=== PATIENT | female | born 1960 | race African-American/Black ===

== ENCOUNTER → 2016-06-23 | Outpatient (CLI) | payer MEDICAID ==
--- NOTE | 2016-06-23 15:55 | WOMENS IMAGING REPORT ---
EXAM DESCRIPTION: BILAT SCREENING MAMMO W/CAD COMPLETED DATE/TIME: 06/23/2016 1:07 pm REASON FOR STUDY: Z12.31, ROUTINE SCREENIG MAMMO Z12.31 ENCNTR SCREEN MAMMOGRAM FOR MALIGNANT NEOPL ASM OF LILY COMPARISON: Multiple since 2008 TECHNIQUE: Standard craniocaudal and mediolateral oblique views of each breast recorded using ROBLOXa l acquisition. LIMITATIONS: None. FINDINGS: Findings present which are benign by mammographic criteria. No suspicious masses, calcifi cations or architectural distortion. Read with the assistance of CAD. .[facility] - R2 Cenova Version 1.3 .[facility] - R2 Cenova Version 1.3 .[facility] - R2 Cenova Version 2.4 .[facility] [place] R2 Cenova Version 2.4 .[facility] - R2 Patcher Helper Version 9.2 Benign mammographic findings may include one or more of the following: Smooth masses, popcorn/rim/co arse calcifications, asymmetries, post-procedure changes, and lesions with long-standing stability. BREAST DENSITY: c. The breasts are heterogeneously dense, which may obscure small masses. BIRAD: 2 BENIGN FINDING(S) RECOMMENDATION: ROUTINE SCREENING COMMENT: PATIENT NOTIFIED BY LETTER. The [employer] recommends an annual screening mammogram for women aged 40 years or over. Each patient will receive a reminder prior to the anniversary date of her mammogram. The [employer] (ACR) has developed recommendations for screening MRI of the breast s in certain patient populations, to be used in conjunction with mammography. Breast MRI surveillanc e may be appropriate for women with more than 20% lifetime risk of developing breast cancer as deter mined by genetic testing, significant family history of the disease, or history of mantle radiation f or Hodgkins Disease. ACR Practice Guidelines 2008. TECHNICAL DOCUMENTATION: FINDING NUMBER: (1) ASSESSMENT: (1) JOB ID: [id number] [employer]- All Rights Reserved
== END ==
LOC: WI 11:05
PROVIDERS: ATTEND Physician Assistant
DX: Z12.31 Encounter for screening mammogram for malignant neoplasm of breast (principal)
CPT/HCPCS: 77067; G0202

== ENCOUNTER → 2017-07-30 | Outpatient (CLI) | payer MEDICAID ==
--- NOTE | 2017-07-30 12:24 | WOMENS IMAGING REPORT ---
EXAM DESCRIPTION: BILAT SCREENING MAMMO W/CAD COMPLETED DATE/TIME: 07/30/2017 9:43 am REASON FOR STUDY: ROUTINE SCREENING;Z12.31 Z12.31 ENCNTR SCREEN MAMMOGRAM FOR MALIGNANT NEOPLASM OF LILY COMPARISON: May 2016 and May 2015 TECHNIQUE: Standard craniocaudal and mediolateral oblique views of each breast recorded using Zet Universea l acquisition. LIMITATIONS: None. FINDINGS: Findings present which are benign by mammographic criteria. No suspicious masses, calcifi cations or architectural distortion. Pertinent benign findings: Scattered bilateral calcifications appears stable Read with the assistance of CAD. .[facility] - R2 Cenova Version 1.3 .[facility] - R2 Cenova Version 1.3 .[facility] - R2 Cenova Version 2.4 .[facility] [place]2 Cenova Version 2.4 .[facility] - R2 Grain Origination Specialist Version 9.2 Benign mammographic findings may include one or more of the following: Smooth masses, popcorn/rim/co arse calcifications, asymmetries, post-procedure changes, and lesions with long-standing stability. IMPRESSION: BENIGN MAMMOGRAPHIC FINDINGS. BIRADS 2 BREAST DENSITY: c. The breasts are heterogeneously dense, which may obscure small masses. BIRAD: 2 BENIGN FINDING(S) RECOMMENDATION: ROUTINE SCREENING COMMENT: The patient has been notified of the results by letter per MQSA requirements. Additional no tification policies are in place for contacting patient with suspicious or incomplete findings. Quality ID #[id number]: The [employer] recommends an annual screening mammogram for women aged 40 years or over. This facility utilizes a reminder system to ensure that all patients receive reminder letters, and/or direct phone calls for appointments. This includes reminders for routine scr eening mammograms, diagnostic mammograms, or other Breast Imaging Interventions when appropriate. Th is patient will be placed in the appropriate reminder system. The [employer] (ACR) has developed recommendations for screening MRI of the breast s in certain patient populations, to be used in conjunction with mammography. Breast MRI surveillanc e may be appropriate for women with more than 20% lifetime risk of developing breast cancer as deter mined by genetic testing, significant family history of the disease, or history of mantle radiation f or Hodgkins Disease. ACR Practice Guidelines 2008. TECHNICAL DOCUMENTATION: FINDING NUMBER: (1) ASSESSMENT: (1) JOB ID: [id number] [employer]- All Rights Reserved Reading location - IP/workstation name: [email or web address]
== END ==
LOC: WI 09:28
PROVIDERS: ATTEND Physician Assistant
DX: Z12.31 Encounter for screening mammogram for malignant neoplasm of breast (principal)
CPT/HCPCS: 77067

== ENCOUNTER 2018-03-18 16:13 | Inpatient (IN) | payer MEDICAID ==
[2018-03-18] MEDS ORDERED: ACETAMINOPHEN 650 MG SUPP.RECT PR ONE (16:29)
[2018-03-18] MEDS ORDERED: NORMAL SALINE 1000 ML 1,000 ML IV ONE (16:35)
--- NOTE | 2018-03-18 16:37 | ER Document Report ---
ED General - General Stated Complaint: FEVER Time Seen by Provider: 03/18/18 16:24 Mode of Arrival: Ambulatory Information source: Patient Notes: This is a 57-year-old female with a history of multiple sclerosis, seizure, Alzheimer's who is brought into the emergency room because of difficulty walking. Patient normally has an unsteady gait at baseline from her MS but the patient's sister (whom she lives with) states that she is having increased weakness. Patient also is been found to be febrile in the ER. TRAVEL OUTSIDE OF THE [place] IN LAST 30 DAYS: No - HPI Onset: Yesterday Onset/Duration: Gradual Quality of pain: No pain Severity: None Pain Level: Denies Associated symptoms: Fever, Weakness. denies: Chest pain, Shortness of breath Exacerbated by: Denies Relieved by: Denies Similar symptoms previously: Yes Recently seen / treated by doctor: No - Related Data Allergies/Adverse Reactions: No Known Allergies Allergy (Verified 02/04/16 15:52) Past Medical History - General Information source: Relative - Social History Smoking Status: Unknown if Ever Smoked Cigarette use (# per day): No Chew tobacco use (# tins/day): No Frequency of alcohol use: None Drug Abuse: None Lives with: Family Family History: Reviewed & Not Pertinent Patient has suicidal ideation: No Patient has homicidal ideation: No - Past Medical History Cardiac Medical History: Denies: Hx Coronary Artery Disease, Hx Heart Attack, Hx Hypertension Pulmonary Medical History: Denies: Hx Asthma, Hx Bronchitis, Hx COPD, Hx Pneumonia, Hx Tuberculosis Neurological Medical History: Reports: Hx Seizures - 3-4 yrs ago, Other - MS. Denies: Hx Cerebrovascular Accident Endocrine Medical History: Reports: None Renal/ Medical History: Reports: None Malignancy Medical History: Reports: None GI Medical History: Reports: None Musculoskeletal Medical History: Reports None, Denies Hx Arthritis Skin Medical History: Reports None Psychiatric Medical History: Reports: None Traumatic Medical History: Reports: None Infectious Medical History: Reports: None Past Surgical History: Reports: Hx Hysterectomy. Denies: Hx Pacemaker - Immunizations Hx Diphtheria, Pertussis, Tetanus Vaccination: Yes Hx Pneumococcal Vaccination: 03/07/13 Review of Systems - Review of Systems Constitutional: denies: Chills, Fever EENT: No symptoms reported Cardiovascular: No symptoms reported Respiratory: No symptoms reported Gastrointestinal: denies: Abdominal pain, Vomiting Genitourinary: No symptoms reported Female Genitourinary: No symptoms reported Musculoskeletal: No symptoms reported Skin: No symptoms reported Hematologic/Lymphatic: No symptoms reported Neurological/Psychological: See HPI, Weakness, Gait changes Physical Exam - Vital signs Vitals: Pulse Ox 99 03/18/18 16:44 Notes: Physical exam: GENERAL: Patient is alert and she is answering questions, she appears to be at her baseline mentally (the patient's sister is at the bedside). She is febrile (103 rectally). HEAD: Atraumatic, normocephalic. EYES: Pupils equal round and reactive to light, extraocular movements intact, sclera anicteric, conjunctiva are normal. ENT: TMs normal, nares patent, oropharynx clear without exudates. Moist mucous membranes. NECK: Normal range of motion, supple without obvious mass or JVD. LUNGS: Breath sounds clear to auscultation bilaterally and equal. No wheezes rales or rhonchi. HEART: Regular rate and rhythm without murmurs, rubs or gallops. ABDOMEN: Soft, normoactive bowel sounds. No tenderness to palpation. No guarding, no rebound. No masses appreciated. Rectal: Brown stool, sent for study, no masses. Back: No obvious perianal abscesses. No skin changes acutely to the back. EXTREMITIES: Normal range of motion, no pitting or edema. No clubbing or cyanosis. NEUROLOGICAL: Cranial nerves II through XII grossly intact. Normal speech, moving all extremities. PSYCH: Normal mood, normal affect. SKIN: Warm, Dry, normal turgor, no rashes or lesions noted. Course - Re-evaluation Re-evalutation: 03/18/18 21:04 Vision is been treated with IV fluids, IV ceftriaxone and Tylenol. Plan is for admission for continued fluids and IV antibiotics along with an MRI of the head (with and without: MS protocol) in the morning. Discussed with Dr. Moon who will be admitting patient. 03/18/18 21:05 - Vital Signs Vital signs: Temp Pulse Resp BP Pulse Ox 113/72 100 03/18/18 16:45 03/18/18 16:45 - Laboratory Result Diagrams: 03/18/18 16:25 03/18/18 16:25 Laboratory results interpreted by me: 03/18/18 03/18/18 03/18/18 16:25 16:25 16:25 Seg Neutrophils % 84.5 H Lymphocytes % 8.5 L Absolute Neutrophils 8.7 H AST 82 H ALT 70 H Total Protein 8.8 H TSH 0.34 L Urine Protein Urine Blood Ur Leukocyte Esterase 03/18/18 16:40 Seg Neutrophils % Lymphocytes % Absolute Neutrophils AST ALT Total Protein TSH Urine Protein 30 H Urine Blood SMALL H Ur Leukocyte Esterase LARGE H - Diagnostic Test Radiology reviewed: Image reviewed, Reports reviewed - CT of the abdomen shows no acute inflammation Discharge - Discharge Clinical Impression: MS flare, SIRS with UTI Condition: Stable Disposition: ADMITTED INPATIENT Admitting Provider: Moon Unit Admitted: Medical Floor
[2018-03-18 16:42] LABS: ABSOLUTE LYMPHOCYTES (AUTO) 0.9 10^3/uL (0.5-4.7); ABSOLUTE MONOCYTES (AUTO) 0.7 10^3/uL (0.1-1.4); ABSOLUTE NEUT (AUTO) 8.7 10^3/uL (1.7-8.2); BASOPHILS % (AUTO) 0.4 % (0-2); HEMATOCRIT 38.3 % (36.0-47.0); HEMOGLOBIN 12.9 g/dL (12.0-15.5); LYMPHOCYTES % (AUTO) 8.5 % (13-45); MEAN CORPUSCULAR HEMOGLOBIN 28.2 pg (27.0-33.4); MEAN CORPUSCULAR HGB CONC 33.8 g/dL (32.0-36.0); MEAN CORPUSCULAR VOLUME 83 fl (80-97); MONOCYTES % (AUTO) 6.6 % (3-13); PLATELET COUNT 249 10^3/uL (150-450); RED BLOOD COUNT 4.59 10^6/uL (3.72-5.28); RED CELL DISTRIBUTION WIDTH 13.4 % (11.5-14.0); SEGMENTED NEUTROPHILS % (AUTO) 84.5 % (42-78); TOTAL CELLS COUNTED % (AUTO) 100 %; WHITE BLOOD COUNT 10.3 10^3/uL (4.0-10.5)
[2018-03-18 16:57] LABS: ALANINE AMINOTRANSFERASE 70 U/L (9-52); ALBUMIN 4.6 g/dL (3.5-5.0); ALKALINE PHOSPHATASE 111 U/L (38-126); ANION GAP 14 (5-19); ASPARTATE AMINO TRANSFERASE 82 U/L (14-36); BILIRUBIN,DIRECT 0.2 mg/dL (0.0-0.4); BILIRUBIN,TOTAL 0.6 mg/dL (0.2-1.3); BLOOD UREA NITROGEN 10 mg/dL (7-20); CALCIUM 9.8 mg/dL (8.4-10.2); CARBON DIOXIDE 25 mmol/L (22-30); CHLORIDE 100 mmol/L (98-107); GLUCOSE 109 mg/dL (75-110); POTASSIUM 4.2 mmol/L (3.6-5.0); SODIUM 139.3 mmol/L (137-145); TOTAL PROTEIN 8.8 g/dL (6.3-8.2)
[2018-03-18 17:03] LABS: APPEARANCE,URINE CLOUDY; BILIRUBIN,URINE NEGATIVE (NEGATIVE); COLOR,URINE YELLOW; GLUCOSE, URINE NEGATIVE (NEGATIVE); KETONES,URINE NEGATIVE (NEGATIVE); LEUKOCYTE ESTERASE,URINE LARGE (NEGATIVE); NITRITE,URINE NEGATIVE (NEGATIVE); PROTEIN,URINE 30 mg/dL (NEGATIVE); URINE SPECIFIC GRAVITY 1.011; UROBILINOGEN,URINE NEGATIVE mg/dL (<2.0)
--- NOTE | 2018-03-18 17:09 | RADIOLOGY REPORT (SQ) ---
EXAM DESCRIPTION: CHEST SINGLE VIEW COMPLETED DATE/TIME: 03/18/2018 4:59 pm REASON FOR STUDY: fever, difficulty walking COMPARISON: 03/02/2013. EXAM PARAMETERS: NUMBER OF VIEWS: One view. TECHNIQUE: Single frontal radiographic view of the chest acquired. RADIATION DOSE: NA LIMITATIONS: None. FINDINGS: LUNGS AND PLEURA: No opacities, masses or pneumothorax. No pleural effusion. MEDIASTINUM AND HILAR STRUCTURES: No masses. Contour normal. HEART AND VASCULAR STRUCTURES: Heart normal in size. Normal vasculature. BONES: No acute findings. HARDWARE: None in the chest. OTHER: No other significant finding. IMPRESSION: NO ACUTE RADIOGRAPHIC FINDING IN THE CHEST. TECHNICAL DOCUMENTATION: JOB ID: [id number] [employer]- All Rights Reserved Reading location - IP/workstation name: [email or web address]
[2018-03-18] MEDS ORDERED: CEFTRIAXONE 1 GM/D5W RTU 1 GM/50 ML RTUPB IV ONE (18:30)
--- NOTE | 2018-03-18 20:31 | RADIOLOGY REPORT (SQ) ---
EXAM DESCRIPTION: CT ABD/PELVIS WITH IV ONLY COMPLETED DATE/TIME: 03/18/2018 8:14 pm REASON FOR STUDY: abd pain COMPARISON: None. TECHNIQUE: CT scan of the abdomen and pelvis performed using helical scanning technique with dynamic intravenous contrast injection. No oral contrast. Images reviewed with lung, soft tissue, and bone windows. Reconstructed coronal and sagittal MPR images reviewed. Delayed images for evaluation of the urinary system also acquired. All images stored on PACS. All CT scanners at this facility use dose modulation, iterative reconstruction, and/or weight based d osing when appropriate to reduce radiation dose to as low as reasonably achievable (ALARA). [facility]: Dose Right [facility]: CareDose [facility]: Dose Right [facility]: Teradose 4D [facility]: Energy Points CONTRAST TYPE AND DOSE: contrast/concentration: Isovue 350.00 mg/ml; Total Contrast Delivered: 49.0 ml; Total Saline Delivered: 65.0 ml RENAL FUNCTION: GFR > 60. RADIATION DOSE: CT Rad equipment meets quality standard of care and radiation dose reduction techniq ues were employed. CTDIvol: 4.9 - 5.5 mGy. DLP: 510 mGy-cm.. LIMITATIONS: None. FINDINGS: LOWER CHEST: No significant findings. No nodules or infiltrates. LIVER: Normal size. No masses. No dilated ducts. SPLEEN: Normal size. No focal lesions. PANCREAS: No masses. No significant calcifications. No adjacent inflammation or peripancreatic fluid collections. Pancreatic duct not dilated. GALLBLADDER: No identified stones by CT criteria. No inflammatory changes to suggest cholecystitis. ADRENAL GLANDS: No significant masses or asymmetry. RIGHT KIDNEY AND URETER: No solid masses. No significant calcifications. No hydronephrosis or hyd roureter. LEFT KIDNEY AND URETER: No solid masses. No significant calcifications. No hydronephrosis or hydr oureter. AORTA AND VESSELS: No aneurysm. No dissection. Renal arteries, SMA, celiac without stenosis. RETROPERITONEUM: No retroperitoneal adenopathy, hemorrhage or masses. BOWEL AND PERITONEAL CAVITY: No obstruction. Prominent fecal impaction. APPENDIX: Not visualized. PELVIS: Chowdhury catheter in the bladder. ABDOMINAL WALL: No masses. No hernias. BONES: No significant or acute findings. OTHER: No other significant finding. IMPRESSION: Fecal impaction. TECHNICAL DOCUMENTATION: JOB ID: [id number] Quality ID # [id number]: Final reports with documentation of one or more dose reduction techniques (e.g., Au tomated exposure control, adjustment of the mA and/or kV according to patient size, use of iterative reconstruction technique) 2010 [employer]- All Rights Reserved Reading location - IP/workstation name: [email or web address]
[2018-03-18] MEDS ORDERED: ONDANSETRON HCL INJ/PF 4 MG/2 ML SDV IV PRN (20:50)
[2018-03-18] MEDS ORDERED: IPRATROPIUM/ALBUTEROL 0.5-2.5 MG/3 ML AMPUL NEB PRN (20:50)
[2018-03-18] MEDS ORDERED: ACETAMINOPHEN 325 MG TABLET PO PRN (20:50)
[2018-03-18 21:39] LABS: A TYPE INFLUENZA AG NEGATIVE (NEGATIVE); B INFLUENZA AG NEGATIVE (NEGATIVE)
[2018-03-18] MEDS: FAMOTIDINE 20 MG TABLET PO SCH (21:45)
[2018-03-18] MEDS: LEVETIRACETAM 500 MG TABLET PO SCH (21:45)
[2018-03-18] MEDS: POLYETHYLENE GLYCOL 3350 POWDER 17 GM/1 PACKET PO SCH (22:08)
[2018-03-19] MEDS: NORMAL SALINE 1000 ML 1,000 ML IV PRN ×2 (00:24→20:42)
[2018-03-19 09:29] LABS: HEMATOCRIT 28.1 % (36.0-47.0); MEAN CORPUSCULAR HEMOGLOBIN 27.9 pg (27.0-33.4); MEAN CORPUSCULAR HGB CONC 33.7 g/dL (32.0-36.0); MEAN CORPUSCULAR VOLUME 83 fl (80-97); PLATELET COUNT 210 10^3/uL (150-450); RED BLOOD COUNT 3.39 10^6/uL (3.72-5.28); RED CELL DISTRIBUTION WIDTH 13.6 % (11.5-14.0); WHITE BLOOD COUNT 6.4 10^3/uL (4.0-10.5)
[2018-03-19] MEDS: DOCUSATE SODIUM 100 MG CAPSULE PO SCH ×2 (09:38→17:54)
[2018-03-19] MEDS: ENOXAPARIN SODIUM INJ 40 MG/0.4 ML DISP.SYRIN SUBCUT SCH (09:38)
[2018-03-19 09:39] LABS: ALANINE AMINOTRANSFERASE 51 U/L (9-52); ALBUMIN 2.8 g/dL (3.5-5.0); ALKALINE PHOSPHATASE 70 U/L (38-126); ANION GAP 7 (5-19); ASPARTATE AMINO TRANSFERASE 44 U/L (14-36); BILIRUBIN,DIRECT 0.1 mg/dL (0.0-0.4); BILIRUBIN,TOTAL 0.3 mg/dL (0.2-1.3); BLOOD UREA NITROGEN 7 mg/dL (7-20); CALCIUM 8.5 mg/dL (8.4-10.2); CARBON DIOXIDE 23 mmol/L (22-30); CHLORIDE 110 mmol/L (98-107); GLUCOSE 92 mg/dL (75-110); POTASSIUM 3.8 mmol/L (3.6-5.0); TOTAL PROTEIN 5.8 g/dL (6.3-8.2)
[2018-03-19] MEDS: POLYETHYLENE GLYCOL 3350 POWDER 17 GM/1 PACKET PO SCH (09:39)
[2018-03-19] MEDS: FAMOTIDINE 20 MG TABLET PO SCH ×2 (09:40→22:42)
[2018-03-19] MEDS: CEFTRIAXONE SODIUM 2,000 MG in DEXTROSE 5%-WATER 100 ML IV SCH (09:41)
[2018-03-19 09:43] LABS: HEMOGLOBIN 9.5 g/dL (12.0-15.5)
[2018-03-19] MEDS: LEVETIRACETAM 500 MG TABLET PO SCH ×2 (09:45→22:41)
[2018-03-19] MEDS ORDERED: CEFTRIAXONE 2 GM/D5W RTU 2 GM/50 ML RTUPB IV SCH (10:00)
--- NOTE | 2018-03-19 11:01 | PDOC H&P ---
History of Present Illness Admission Date/PCP: 03/18/18 21:23 DELFINA SHARPE Patient complains of: Altered mental status History of Present Illness: JEAN TOMLINSON is a 57 year old female This is a 57-year-old female with a significant history of the multiple sclerosis currently see outpatients neurology currently not any medications history of for anemia and a history of the unstable or doing a gait came to the emergency departments because of the patient's family noticed patients more alter and also in the breath department patients found to be fever and diagnosed with a urinary tract infections Patient's when I saw in the floor doing better back to the baseline Patients received IV antibiotic and IV fluid Patient's denied any other symptoms Sister is on the bedside discussed with the all the test reports and the plan Past Medical History Cardiac Medical History: Denies: Coronary Artery Disease, Myocardial Infarction, Hypertension Pulmonary Medical History: Denies: Asthma, Bronchitis, Chronic Obstructive Pulmonary Disease (COPD), Pneumonia, Tuberculosis Neurological Medical History: Reports: Seizures - 3-4 yrs ago, Other - MS Endocrine Medical History: Reports: None Renal/ Medical History: Reports: None Malignancy Medical History: Reports: None GI Medical History: Reports: None Musculoskeltal Medical History: Reports: None Denies: Arthritis Skin Medical History: Reports: None Psychiatric Medical History: Reports: None Traumatic Medical History: Reports: None Hematology: Denies: Anemia Infectious Medical History: Reports: None Past Surgical History Past Surgical History: Reports: Hysterectomy Denies: Pacemaker Social History Lives with: Family Smoking Status: Unknown if Ever Smoked Frequency of Alcohol Use: None Hx Recreational Drug Use: No Hx Prescription Drug Abuse: No - Advance Directive Resuscitation Status: Full Code Family History Family History: Reviewed & Not Pertinent Parental Family History Reviewed: Yes Children Family History Reviewed: Yes Sibling(s) Family History Reviewed.: Yes Medication/Allergy Allergies/Adverse Reactions: No Known Allergies Allergy (Verified 02/04/16 15:52) Review of Systems Constitutional: ABSENT: chills, fever(s), headache(s), weight gain, weight loss Eyes: ABSENT: visual disturbances Ears: ABSENT: hearing changes Cardiovascular: ABSENT: chest pain, dyspnea on exertion, edema, orthropnea, palpitations Respiratory: ABSENT: cough, hemoptysis Gastrointestinal: ABSENT: abdominal pain, constipation, diarrhea, hematemesis, hematochezia, nausea, vomiting Genitourinary: ABSENT: dysuria, hematuria Musculoskeletal: ABSENT: joint swelling Integumentary: ABSENT: rash, wounds Neurological: ABSENT: abnormal gait, abnormal speech, confusion, dizziness, focal weakness, syncope Psychiatric: ABSENT: anxiety, depression, homidical ideation, suicidal ideation Endocrine: ABSENT: cold intolerance, heat intolerance, menstrual abnormalities, polydipsia, polyuria Hematologic/Lymphatic: ABSENT: easy bleeding, easy bruising, lymphadenopathy Physical Exam Vital Signs: Temp Pulse Resp BP Pulse Ox 99.8 F 95 16 94/54 L 99 03/19/18 07:14 03/19/18 07:14 03/19/18 07:14 03/19/18 07:14 03/19/18 07:14 Intake & Output 03/18/18 03/19/18 03/20/18 06:59 06:59 06:59 Intake Total 0 Output Total 300 Balance -300 Weight 37.2 kg General appearance: PRESENT: no acute distress, well-developed, well-nourished Head exam: PRESENT: atraumatic, normocephalic Eye exam: PRESENT: conjunctiva pink, EOMI, PERRLA. ABSENT: scleral icterus Ear exam: PRESENT: normal external ear exam Mouth exam: PRESENT: moist, tongue midline Neck exam: PRESENT: full ROM. ABSENT: carotid bruit, JVD, lymphadenopathy, thyromegaly Respiratory exam: PRESENT: clear to auscultation nilson Cardiovascular exam: PRESENT: RRR. ABSENT: diastolic murmur, rubs, systolic murmur Pulses: PRESENT: normal dorsalis pedis pul, +2 pedal pulses bilateral Vascular exam: PRESENT: normal capillary refill GI/Abdominal exam: PRESENT: normal bowel sounds, soft. ABSENT: distended, guarding, mass, organolmegaly, rebound, tenderness Rectal exam: PRESENT: deferred Extremities exam: ABSENT: pedal edema Neurological exam: PRESENT: alert, awake, oriented to person, oriented to place , oriented to time, oriented to situation. ABSENT: motor sensory deficit Psychiatric exam: PRESENT: appropriate affect, normal mood. ABSENT: homicidal ideation, suicidal ideation Skin exam: PRESENT: dry, intact, warm. ABSENT: cyanosis, rash Results Laboratory Results: 03/19/18 09:05 03/19/18 09:05 03/19/18 03/19/18 03/19/18 09:05 09:05 09:05 WBC 6.4 RBC 3.39 L Hgb 9.5 L D Hct 28.1 L MCV 83 MCH 27.9 MCHC 33.7 RDW 13.6 Plt Count 210 Sodium 140.0 Potassium 3.8 Chloride 110 H Carbon Dioxide 23 Anion Gap 7 BUN 7 Creatinine 0.66 Est GFR ( Amer) > 60 Est GFR (Non-Af Amer) > 60 Glucose 92 Calcium 8.5 Magnesium 2.0 Total Bilirubin 0.3 AST 44 H ALT 51 Alkaline Phosphatase 70 Ammonia < 8.7 L Total Protein 5.8 L Albumin 2.8 L Impressions: Chest X-Ray 03/18/18 16:36 IMPRESSION: NO ACUTE RADIOGRAPHIC FINDING IN THE CHEST. Abdomen/Pelvis CT 03/18/18 18:30 IMPRESSION: Fecal impaction. Assessment & Plan - Diagnosis (1) Altered mental status Qualifiers: Altered mental status type: unspecified Qualified Code(s): R41.82 - Altered mental status, unspecified Is this a current diagnosis for this admission?: Yes Plan: Most likely due to the urinary tract infections and the fever Will continues to IV antibiotic Patient is already back to the baseline We will get the MRI for the MS protocol to rule out any active MS (2) Urinary tract infection Qualifiers: Urinary tract infection type: site unspecified Is this a current diagnosis for this admission?: Yes Plan: Wait for the culture and sensitivity (3) Multiple sclerosis Is this a current diagnosis for this admission?: Yes Plan: Follow outpatients neurology Will get the MRI (4) Anemia Qualifiers: Anemia type: iron deficiency Is this a current diagnosis for this admission?: Yes Plan: Will get the iron study (5) Gait instability Is this a current diagnosis for this admission?: Yes Plan: Get the physical therapy evaluations (6) Seizure disorder Is this a current diagnosis for this admission?: Yes Plan: Continues to [facility] - Time Time Spent: 30 to 50 Minutes Medications reviewed and adjusted accordingly: Yes Anticipated discharge: Home Within: Other - Inpatient Certification Based on my medical assessment, after consideration of the patient's comorbidities, presenting symptoms, or acuity I expect that the services needed warrant INPATIENT care.: Yes I certify that my determination is in accordance with my understanding of Medicare's requirements for reasonable and necessary INPATIENT services [42 CFR 412.3e].: Yes Medical Necessity: Need For IV Fluids, Need for IV Antibiotics Post Hospital Care: 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
--- NOTE | 2018-03-19 15:51 | RADIOLOGY REPORT (SQ) ---
EXAM DESCRIPTION: MRI HEAD WITHOUT COMPLETED DATE/TIME: 03/19/2018 3:06 pm REASON FOR STUDY: ms altered mental status, confusion, difficulty walking, weakness COMPARISON: MRI brain 06/26/2015, 12/28/2007 TECHNIQUE: Multiplanar imaging includes non-contrasted T1, T2, FLAIR, and diffusion with ADC map seq uences. Images stored on PACS. LIMITATIONS: Mild motion artifact on some of the pulse sequences FINDINGS: ANATOMY: No congenital anomalies. Normal vascular flow voids. Pituitary fossa normal. CSF SPACES: Normal in size and contour. No hemorrhage. CEREBRUM AND POSTERIOR FOSSA: Profound diffuse white matter disease with atrophy and increased signal of the corpus callosum on FLAIR, with extensive demyelinating lesions in the deep periventricular wh ite matter of the cerebral hemispheres. Old cerebellar and middle cerebellar peduncle white matter l esions from demyelinating disease. No MR findings to suggest acute large territory ischemic change, acute intracranial hemorrhage, mass effect, or midline shift. Internal auditory canals, cerebello-po ntine angles, mastoids normal. DIFFUSION IMAGING: Negative for acute or sub-acute infarction. No diffusion signal abnormalities wor risome for acute demyelinating plaque ORBITS: No masses. Globes normal. PARANASAL SINUSES: No fluid levels. Mucosa normal. OTHER: No other significant finding. IMPRESSION: Extensive white matter lesions from patient's known multiple sclerosis. Diffusion-weigh kaylan images are negative for acute ischemic change or acute demyelinating lesions. EVIDENCE OF ACUTE STROKE: NO. TECHNICAL DOCUMENTATION: JOB ID: [id number] [employer]- All Rights Reserved Reading location - IP/workstation name: [email or web address]
--- NOTE | 2018-03-19 15:52 | RADIOLOGY REPORT (SQ) ---
EXAM DESCRIPTION: CHEST 2 VIEWS COMPLETED DATE/TIME: 03/19/2018 1:15 pm REASON FOR STUDY: FEVER COMPARISON: 03/18/2018 EXAM PARAMETERS: NUMBER OF VIEWS: two views TECHNIQUE: Digital Frontal and Lateral radiographic views of the chest acquired. RADIATION DOSE: NA LIMITATIONS: none FINDINGS: LUNGS AND PLEURA: No opacities, masses or pneumothorax. No pleural effusion. MEDIASTINUM AND HILAR STRUCTURES: No masses or contour abnormalities. HEART AND VASCULAR STRUCTURES: Heart normal size. No evidence for failure. BONES: No acute findings. HARDWARE: None in the chest. OTHER: No other significant finding. IMPRESSION: NO ACUTE RADIOGRAPHIC FINDING IN THE CHEST. TECHNICAL DOCUMENTATION: JOB ID: [id number] [employer]- All Rights Reserved Reading location - IP/workstation name: [email or web address]
[2018-03-20 06:12] LABS: HEMATOCRIT 27.7 % (36.0-47.0); HEMOGLOBIN 9.4 g/dL (12.0-15.5); MEAN CORPUSCULAR HEMOGLOBIN 28.2 pg (27.0-33.4); MEAN CORPUSCULAR HGB CONC 33.9 g/dL (32.0-36.0); MEAN CORPUSCULAR VOLUME 83 fl (80-97); PLATELET COUNT 216 10^3/uL (150-450); RED BLOOD COUNT 3.33 10^6/uL (3.72-5.28); RED CELL DISTRIBUTION WIDTH 13.6 % (11.5-14.0); WHITE BLOOD COUNT 4.4 10^3/uL (4.0-10.5)
[2018-03-20] MEDS: CEFTRIAXONE SODIUM 2,000 MG in DEXTROSE 5%-WATER 100 ML IV SCH (09:10)
[2018-03-20] MEDS: DOCUSATE SODIUM 100 MG CAPSULE PO SCH ×2 (10:32→17:50)
[2018-03-20] MEDS: LEVETIRACETAM 500 MG TABLET PO SCH ×2 (10:32→22:14)
[2018-03-20] MEDS: FAMOTIDINE 20 MG TABLET PO SCH ×2 (10:32→22:14)
[2018-03-20] MEDS: ENOXAPARIN SODIUM INJ 40 MG/0.4 ML DISP.SYRIN SUBCUT SCH (10:32)
[2018-03-20] MEDS: POLYETHYLENE GLYCOL 3350 POWDER 17 GM/1 PACKET PO SCH (10:32)
--- NOTE | 2018-03-20 11:12 | PDOC PROGRESS REPORT ---
Subjective Progress Note for:: 03/20/18 Subjective:: Patient is currently doing well patient MRI suggested demyelinated disease but no other acute finding Patient is back to the baseline Urine cultures grew out gram-negative organism still pending for the culture and sensitivity Reason For Visit: UTI, MS Physical Exam Vital Signs: Temp Pulse Resp BP Pulse Ox 98.4 F 69 14 108/73 100 03/20/18 07:23 03/20/18 08:50 03/20/18 07:23 03/20/18 07:23 03/20/18 07:23 Intake & Output 03/19/18 03/20/18 03/21/18 06:59 06:59 06:59 Intake Total 0 1588 Output Total 300 700 Balance -300 888 Weight 37.2 kg 37.4 kg General appearance: PRESENT: no acute distress, well-developed, well-nourished Head exam: PRESENT: atraumatic, normocephalic Eye exam: PRESENT: conjunctiva pink, EOMI, PERRLA. ABSENT: scleral icterus Ear exam: PRESENT: normal external ear exam Mouth exam: PRESENT: moist, tongue midline Neck exam: PRESENT: full ROM. ABSENT: carotid bruit, JVD, lymphadenopathy, thyromegaly Respiratory exam: PRESENT: clear to auscultation nilson Cardiovascular exam: PRESENT: RRR. ABSENT: diastolic murmur, rubs, systolic murmur Pulses: PRESENT: normal dorsalis pedis pul, +2 pedal pulses bilateral Vascular exam: PRESENT: normal capillary refill GI/Abdominal exam: PRESENT: normal bowel sounds, soft. ABSENT: distended, guarding, mass, organolmegaly, rebound, tenderness Rectal exam: PRESENT: deferred Extremities exam: ABSENT: pedal edema Musculoskeletal exam: PRESENT: ambulatory Neurological exam: PRESENT: alert, awake, oriented to person, oriented to place. ABSENT: motor sensory deficit Psychiatric exam: PRESENT: appropriate affect, normal mood. ABSENT: homicidal ideation, suicidal ideation Skin exam: PRESENT: dry, intact, warm. ABSENT: cyanosis, rash Results Laboratory Results: 03/20/18 05:30 03/19/18 09:05 03/20/18 03/20/18 05:30 05:30 WBC 4.4 RBC 3.33 L Hgb 9.4 L Hct 27.7 L MCV 83 MCH 28.2 MCHC 33.9 RDW 13.6 Plt Count 216 Magnesium 2.0 Impressions: Abdomen/Pelvis CT 03/18/18 18:30 IMPRESSION: Fecal impaction. Head MRI 03/18/18 20:50 IMPRESSION: Extensive white matter lesions from patient's known multiple sclerosis. Diffusion-weighted images are negative for acute ischemic change or acute demyelinating lesions. EVIDENCE OF ACUTE STROKE: NO. Chest X-Ray 03/19/18 11:12 IMPRESSION: NO ACUTE RADIOGRAPHIC FINDING IN THE CHEST. Assessment & Plan - Diagnosis (1) Altered mental status Qualifiers: Altered mental status type: unspecified Qualified Code(s): R41.82 - Altered mental status, unspecified Is this a current diagnosis for this admission?: Yes Plan: Most likely due to the urinary tract infections and the fever Will continues to IV antibiotic Patient is already back to the baseline We will get the MRI for the MS protocol to rule out any active MS (2) Urinary tract infection Qualifiers: Urinary tract infection type: site unspecified Is this a current diagnosis for this admission?: Yes Plan: Wait for the culture and sensitivity (3) Multiple sclerosis Is this a current diagnosis for this admission?: Yes Plan: Follow outpatients neurology (4) Anemia Qualifiers: Anemia type: iron deficiency Is this a current diagnosis for this admission?: Yes Plan: Will get the iron study (5) Gait instability Is this a current diagnosis for this admission?: Yes Plan: Get the physical therapy evaluations (6) Seizure disorder Is this a current diagnosis for this admission?: Yes Plan: Continues to Keppra - Time Time Spent with patient: 15-24 minutes Medications reviewed and adjusted accordingly: Yes Anticipated discharge: Other Within: Other - Inpatient Certification Based on my medical assessment, after consideration of the patient's comorbidities, presenting symptoms, or acuity I expect that the services needed warrant INPATIENT care.: Yes I certify that my determination is in accordance with my understanding of Medicare's requirements for reasonable and necessary INPATIENT services [42 CFR 412.3e].: Yes Medical Necessity: Need Close Monitoring Due to Risk of Patient Decompensation, Need For IV Fluids, Need for IV Antibiotics Post Hospital Care: D/C [facility] Documentation - Plan Summary Plan Summary: Discussed with the sister about all the MRI finding the other test reports hopefully discharge tomorrow follow outpatients neurology
[2018-03-21 05:49] LABS: HEMATOCRIT 27.8 % (36.0-47.0); HEMOGLOBIN 9.3 g/dL (12.0-15.5); MEAN CORPUSCULAR HEMOGLOBIN 27.9 pg (27.0-33.4); MEAN CORPUSCULAR HGB CONC 33.6 g/dL (32.0-36.0); MEAN CORPUSCULAR VOLUME 83 fl (80-97); PLATELET COUNT 234 10^3/uL (150-450); RED BLOOD COUNT 3.35 10^6/uL (3.72-5.28); RED CELL DISTRIBUTION WIDTH 13.5 % (11.5-14.0)
[2018-03-21 08:27] VITALS: BP 111/86
[2018-03-21] MEDS: ENOXAPARIN SODIUM INJ 40 MG/0.4 ML DISP.SYRIN SUBCUT SCH (09:01)
[2018-03-21] MEDS: DOCUSATE SODIUM 100 MG CAPSULE PO SCH (09:01)
[2018-03-21] MEDS: POLYETHYLENE GLYCOL 3350 POWDER 17 GM/1 PACKET PO SCH (09:02)
[2018-03-21] MEDS: LEVETIRACETAM 500 MG TABLET PO SCH (09:06)
[2018-03-21] MEDS: FAMOTIDINE 20 MG TABLET PO SCH (09:06)
[2018-03-21] MEDS ORDERED: CEFTRIAXONE SODIUM 2,000 MG in DEXTROSE 5%-WATER 100 ML IV SCH (10:00)
--- NOTE | 2018-03-21 11:21 | PDOC DISCHARGE SUMMARY ---
General - Admit/Disc Date/PCP Admission Date/Primary Care Provider: 03/18/18 21:23 DELFINA SHARPE Discharge Date: 03/21/18 - Discharge Diagnosis (1) Altered mental status Is this a current diagnosis for this admission?: Yes Summary: Currently all resolved (2) Urinary tract infection Is this a current diagnosis for this admission?: Yes Summary: Start the patient on p.o. Keflex (3) Multiple sclerosis Is this a current diagnosis for this admission?: Yes Summary: Follow outpatients neurology (4) Anemia Is this a current diagnosis for this admission?: Yes Summary: Patient see hematology as outpatient (5) Gait instability Is this a current diagnosis for this admission?: Yes Summary: Physical therapy (6) Seizure disorder Is this a current diagnosis for this admission?: Yes Summary: Currently all stable - Additional Information Resuscitation Status: Full Code Discharge Diet: Regular Discharge Activity: Activity As Tolerated Prescriptions: Cephalexin Monohydrate [Keflex 500 mg Capsule] 500 mg PO BID #14 capsule Home Medications: Ergocalciferol (Vitamin D2) [Vitamin D2] 50,000 unit PO TH@1000 03/19/18 Levetiracetam [Keppra] 1,000 mg PO DAILY 03/19/18 Simvastatin [Zocor 20 mg Tablet] 20 mg PO QHS 03/19/18 Cephalexin Monohydrate [Keflex 500 mg Capsule] 500 mg PO BID #14 capsule History of Present Illness History of Present Illness: JEAN TOMLINSON is a 57 year old female This is a 57-year-old female with a significant history of the multiple sclerosis currently see outpatients neurology currently not any medications history of for anemia and a history of the unstable or doing a gait came to the emergency departments because of the patient's family noticed patients more alter and also in the breath department patients found to be fever and diagnosed with a urinary tract infections Patient's when I saw in the floor doing better back to the baseline Patients received IV antibiotic and IV fluid Patient's denied any other symptoms Sister is on the bedside discussed with the all the test reports and the plan Hospital Course Hospital Course: This is a 57-year-old female present in the emergency department with Altered mental status and a fever and diagnosed with urinary tract infections Since treated with IV Rocephin and switch to the p.o. Keflex and the patient MRI of the brain was done which no other acute finding except ongoing demyelinated disease in patients currently follow with the neurology Discussed with the sister regarding the patient's current conditions and follow outpatient Physical Exam Vital Signs: Temp Pulse Resp BP Pulse Ox 98.5 F 76 16 111/86 H 100 03/21/18 08:26 03/21/18 08:26 03/21/18 08:26 03/21/18 08:26 03/21/18 08:26 Intake & Output 03/20/18 03/21/18 03/22/18 06:59 06:59 06:59 Intake Total 1588 1300 Output Total 700 1500 Balance 888 -200 Weight 37.4 kg 37.5 kg General appearance: PRESENT: no acute distress, well-developed, well-nourished Head exam: PRESENT: atraumatic, normocephalic Eye exam: PRESENT: conjunctiva pink, EOMI, PERRLA. ABSENT: scleral icterus Ear exam: PRESENT: normal external ear exam Mouth exam: PRESENT: moist, tongue midline Neck exam: PRESENT: full ROM. ABSENT: carotid bruit, JVD, lymphadenopathy, thyromegaly Respiratory exam: PRESENT: clear to auscultation nilson Cardiovascular exam: PRESENT: RRR. ABSENT: diastolic murmur, rubs, systolic murmur Pulses: PRESENT: normal dorsalis pedis pul, +2 pedal pulses bilateral Vascular exam: PRESENT: normal capillary refill GI/Abdominal exam: PRESENT: normal bowel sounds, soft. ABSENT: distended, guarding, mass, organolmegaly, rebound, tenderness Rectal exam: PRESENT: deferred Extremities exam: ABSENT: pedal edema Neurological exam: PRESENT: alert, awake, oriented to person. ABSENT: motor sensory deficit Psychiatric exam: PRESENT: appropriate affect, normal mood. ABSENT: homicidal ideation, suicidal ideation Skin exam: PRESENT: dry, intact, warm. ABSENT: cyanosis, rash Results Laboratory Results: 03/21/18 04:53 03/19/18 09:05 03/21/18 03/21/18 04:53 04:53 WBC 4.0 RBC 3.35 L Hgb 9.3 L Hct 27.8 L MCV 83 MCH 27.9 MCHC 33.6 RDW 13.5 Plt Count 234 Magnesium 2.1 Impressions: Abdomen/Pelvis CT 03/18/18 18:30 IMPRESSION: Fecal impaction. Head MRI 03/18/18 20:50 IMPRESSION: Extensive white matter lesions from patient's known multiple sclerosis. Diffusion-weighted images are negative for acute ischemic change or acute demyelinating lesions. EVIDENCE OF ACUTE STROKE: NO. Chest X-Ray 03/19/18 11:12 IMPRESSION: NO ACUTE RADIOGRAPHIC FINDING IN THE CHEST. Qualifiers - * PATIENT BEING DISCHARGED WITH ANY OF THE FOLLOWING DIAGNOSIS: No VTE patient discharged on overlapping Therapy?: Yes Plan Time Spent: Greater than 30 Minutes - Currently all stable
== END 2018-03-21 10:35 | disposition home health service (06) | DRG 690 ==
LOC: ER 16:13 → EH 21:23 → 5 03-19 00:21
PROVIDERS: ADMIT Family Medicine; ATTEND Family Medicine
DX: N39.0 Urinary tract infection, site not specified (principal); G35 Multiple sclerosis; B96.20 Unspecified Escherichia coli [E. coli] as the cause of diseases classified elsewhere; D50.9 Iron deficiency anemia, unspecified; G40.909 Epilepsy, unspecified, not intractable, without status epilepticus; G30.9 Alzheimer's disease, unspecified; F02.80 Dementia in other diseases classified elsewhere, unspecified severity, without behavioral disturbance, psychotic disturbance, mood disturbance, and anxiety; R26.2 Difficulty in walking, not elsewhere classified
CPT/HCPCS: 36415; 70551; 71045; 71046; 74177; 80053; 81001; 82140; 82272; 83605; 83735; 84443; 85025; 85027; 87040; 87086; 87088; 87186; 87804; 96361; 96365; 99285; J0696; J1650; J2405; J3490; J7030

== ENCOUNTER 2018-06-04 02:26 | Emergency (ER) | payer MEDICAID ==
[2018-06-04 02:39] VITALS: BP 97/65
== END 2018-06-04 04:42 | disposition left against medical advice (07) ==
LOC: ER 02:26
DX: Z53.21 Procedure and treatment not carried out due to patient leaving prior to being seen by health care provider (principal)

== ENCOUNTER 2018-06-04 15:40 | Inpatient (IN) | payer MEDICAID ==
[2018-06-04] MEDS ORDERED: CEFTRIAXONE 1 GM/D5W RTU 1 GM/50 ML RTUPB IV ONE (16:30)
[2018-06-04] MEDS ORDERED: ACETAMINOPHEN 325 MG TABLET PO ONE (16:47)
[2018-06-04] MEDS ORDERED: NORMAL SALINE 1000 ML 1,000 ML IV ONE ×2 (16:47→20:59)
--- NOTE | 2018-06-04 16:47 | ER Document Report ---
ED Medical Screen (RME) - General Chief Complaint: Trouble Walking Stated Complaint: DIFFICULTY WALKING Time Seen by Provider: 06/04/18 16:40 TRAVEL OUTSIDE OF THE [place] IN LAST 30 DAYS: No - Related Data Allergies/Adverse Reactions: No Known Allergies Allergy (Verified 06/04/18 15:40) Past Medical History - Past Medical History Cardiac Medical History: Denies: Hx Coronary Artery Disease, Hx Heart Attack, Hx Hypertension Pulmonary Medical History: Denies: Hx Asthma, Hx Bronchitis, Hx COPD, Hx Pneumonia, Hx Tuberculosis Neurological Medical History: Reports: Hx Seizures - 3-4 yrs ago. Denies: Hx Cerebrovascular Accident Renal/ Medical History: Denies: Hx Peritoneal Dialysis Musculoskeltal Medical History: Denies Hx Arthritis Past Surgical History: Reports: Hx Hysterectomy. Denies: Hx Pacemaker - Immunizations Hx Diphtheria, Pertussis, Tetanus Vaccination: Yes Physical Exam - Vital signs Vitals: Temp Pulse Resp BP Pulse Ox 100.6 F H 129 H 16 91/60 L 97 06/04/18 15:47 06/04/18 15:47 06/04/18 15:47 06/04/18 15:47 06/04/18 15:47 Course - Re-evaluation Re-evalutation: 58-year-old woman with a history of multiple sclerosis. She presents febrile tachycardic was seen yesterday for similar things. I have seen and evaluated this patient in rapid medical screening exam, there will require reexamination and further assessment with possible diagnostics and disposition determination by secondary provider. - Vital Signs Vital signs: Temp Pulse Resp BP Pulse Ox 100.6 F H 129 H 16 91/60 L 97 06/04/18 15:47 06/04/18 15:47 06/04/18 15:47 06/04/18 15:47 06/04/18 15:47 Doctor's Discharge - Discharge Referrals: ZORAIDA MART PA [Primary Care Provider] - Follow up as needed
[2018-06-04 17:38] LABS: ABSOLUTE LYMPHOCYTES (AUTO) 1.1 10^3/uL (0.5-4.7); ABSOLUTE NEUT (AUTO) 8.6 10^3/uL (1.7-8.2); BASOPHILS % (AUTO) 0.3 % (0-2); HEMATOCRIT 35.5 % (36.0-47.0); MEAN CORPUSCULAR HEMOGLOBIN 28.2 pg (27.0-33.4); MEAN CORPUSCULAR HGB CONC 33.8 g/dL (32.0-36.0); MEAN CORPUSCULAR VOLUME 84 fl (80-97); MONOCYTES % (AUTO) 9.1 % (3-13); PLATELET COUNT 286 10^3/uL (150-450); RED BLOOD COUNT 4.25 10^6/uL (3.72-5.28); RED CELL DISTRIBUTION WIDTH 14.2 % (11.5-14.0); SEGMENTED NEUTROPHILS % (AUTO) 80.6 % (42-78); TOTAL CELLS COUNTED % (AUTO) 100 %; WHITE BLOOD COUNT 10.7 10^3/uL (4.0-10.5)
[2018-06-04 17:43] LABS: INTERNATIONAL RATION (INR) 0.98; PROTHROMBIN TIME 13.5 SEC (11.4-15.4)
[2018-06-04 17:57] LABS: VENOUS BLOOD HCO3 26.7 mmol/L (20-32); VENOUS BLOOD PCO2 45.9 mmHg (35-63); VENOUS BLOOD PH 7.38 (7.30-7.42)
--- NOTE | 2018-06-04 18:00 | RADIOLOGY REPORT (SQ) ---
EXAM DESCRIPTION: CHEST 2 VIEWS COMPLETED DATE/TIME: 06/04/2018 5:52 pm REASON FOR STUDY: pneumonia? COMPARISON: 03/19/2018 EXAM PARAMETERS: NUMBER OF VIEWS: two views TECHNIQUE: Digital Frontal and Lateral radiographic views of the chest acquired. RADIATION DOSE: NA LIMITATIONS: none FINDINGS: LUNGS AND PLEURA: No opacities, masses or pneumothorax. No pleural effusion. Hyperinflati on. MEDIASTINUM AND HILAR STRUCTURES: No masses or contour abnormalities. HEART AND VASCULAR STRUCTURES: Heart normal size. No evidence for failure. BONES: No acute findings. HARDWARE: None in the chest. OTHER: No other significant finding. IMPRESSION: Pulmonary hyperinflation without acute abnormality of the lungs. No focal airspace opac ity. TECHNICAL DOCUMENTATION: JOB ID: [id number] [employer]- All Rights Reserved Reading location - IP/workstation name: [email or web address]
--- NOTE | 2018-06-04 19:16 | EKG REPORT ---
SEVERITY:- NORMAL ECG - SINUS RHYTHM : Confirmed by: Violette Vargas MD 04-Jun-2018 19:15:46
[2018-06-04 19:29] LABS: ALANINE AMINOTRANSFERASE 49 U/L (9-52); ALBUMIN 3.3 g/dL (3.5-5.0); ALKALINE PHOSPHATASE 78 U/L (38-126); ANION GAP 8 (5-19); ASPARTATE AMINO TRANSFERASE 48 U/L (14-36); BILIRUBIN,DIRECT 0.3 mg/dL (0.0-0.4); BILIRUBIN,TOTAL 0.4 mg/dL (0.2-1.3); BLOOD UREA NITROGEN 13 mg/dL (7-20); CALCIUM 8.5 mg/dL (8.4-10.2); CARBON DIOXIDE 22 mmol/L (22-30); CHLORIDE 110 mmol/L (98-107); GLUCOSE 120 mg/dL (75-110); POTASSIUM 3.9 mmol/L (3.6-5.0); SODIUM 140.2 mmol/L (137-145); TOTAL PROTEIN 6.6 g/dL (6.3-8.2)
[2018-06-04 20:13] LABS: APPEARANCE,URINE TURBID; BILIRUBIN,URINE NEGATIVE (NEGATIVE); COLOR,URINE YELLOW; GLUCOSE, URINE NEGATIVE (NEGATIVE); KETONES,URINE TRACE mg/dL (NEGATIVE); LEUKOCYTE ESTERASE,URINE LARGE (NEGATIVE); NITRITE,URINE POSITIVE (NEGATIVE); PROTEIN,URINE 30 mg/dL (NEGATIVE); URINE SPECIFIC GRAVITY 1.006; UROBILINOGEN,URINE NEGATIVE mg/dL (<2.0)
--- NOTE | 2018-06-04 21:10 | ER Document Report ---
ED General - General Chief Complaint: Trouble Walking Stated Complaint: DIFFICULTY WALKING Time Seen by Provider: 06/04/18 16:40 Cannot obtain history due to: Dementia, Altered mental status Notes: Patient is a 58-year-old female with a past medical history of MS, Alzheimer's dementia, presents due to concerns of inability to walk, fever, and altered mental status. History is as obtained from previous records and nursing report as family is not at the bedside at time of my assessment. Patient herself is profoundly demented, believes Curt Chaparro is the president, does not know anything beyond her own name. She states she feels fine and does not know why she is at the hospital. Review of records from February 2018 revealed the patient is a very similar presentation and that context with a septic picture secondary to pyelonephritis. TRAVEL OUTSIDE OF THE [place] IN LAST 30 DAYS: No - Related Data Allergies/Adverse Reactions: No Known Allergies Allergy (Verified 06/04/18 15:40) Past Medical History - General Information source: [facility] Records Cannot obtain history due to: Dementia, Altered mental status - Social History Smoking Status: Former Smoker Frequency of alcohol use: None Drug Abuse: None Lives with: Family Family History: Reviewed & Not Pertinent Patient has suicidal ideation: No Patient has homicidal ideation: No - Past Medical History Cardiac Medical History: Denies: Hx Coronary Artery Disease, Hx Heart Attack, Hx Hypertension Pulmonary Medical History: Denies: Hx Asthma, Hx Bronchitis, Hx COPD, Hx Pneumonia, Hx Tuberculosis Neurological Medical History: Reports: Hx Seizures - 3-4 yrs ago. Denies: Hx Cerebrovascular Accident Renal/ Medical History: Denies: Hx Peritoneal Dialysis Musculoskeletal Medical History: Denies Hx Arthritis Past Surgical History: Reports: Hx Hysterectomy. Denies: Hx Pacemaker - Immunizations Hx Diphtheria, Pertussis, Tetanus Vaccination: Yes Hx Pneumococcal Vaccination: 03/07/13 Review of Systems - Review of Systems -: Yes ROS unobtainable due to patient's medical condition Physical Exam - Vital signs Vitals: Temp Pulse Resp BP Pulse Ox 100.6 F H 129 H 16 91/60 L 97 06/04/18 15:47 06/04/18 15:47 06/04/18 15:47 06/04/18 15:47 06/04/18 15:47 Interpretation: Hypotensive, Tachycardic, Febrile Notes: PHYSICAL EXAMINATION: GENERAL: Cachectic, chronically ill in appearance but in no acute distress HEAD: Atraumatic, normocephalic. EYES: Pupils equal round and reactive to light, extraocular movements intact, sclera anicteric, conjunctiva are normal. ENT: nares patent, oropharynx clear without exudates. Moderately dry mucous membranes. NECK: Normal range of motion, supple without lymphadenopathy LUNGS: Breath sounds clear to auscultation bilaterally and equal. No wheezes rales or rhonchi. HEART: Regular tachycardia without murmurs ABDOMEN: Soft, nontender, normoactive bowel sounds. No guarding, no rebound. No masses appreciated. EXTREMITIES: Normal range of motion, no pitting or edema. No cyanosis. NEUROLOGICAL: No focal neurological deficits. Moves all extremities spontaneously and on command. PSYCH: Alert, oriented only to name SKIN: Warm, Dry, normal turgor, no rashes or lesions noted. Course - Re-evaluation Re-evalutation: 06/04/18 21:14 Presentation of a patient with findings consistent with sepsis with tachycardia, fever, source of pyonephritis on urinalysis. Will, mild leukocytosis of 10.9, renal functions are within normal levels. Chest x-ray is clear. The patient is apparently normally able to ambulate with assistance although the family brought her in today because she was completely unable to ambulate and more confused than normal. This appears very similar to her presentation in February 2018. The patient is profoundly confused at the time of my assessment, does not know month, year, current events or current president. Only able to state her name. It does appear based on previous notes that this is not the patient's baseline although there is no family available at the time of my evaluation to state whether or not the patient is normally this disoriented. Patient was noted initially be tachycardic, febrile and moderately hypotensive into the low 90s systolic. This has improved improved after fluid resuscitation patient has been started on ceftriaxone for presumptive coverage of pyelonephritis. Cultures have been sent. I discussed this case with Dr. Pierre who is covering for Dr. Moon who has accepted the patient for admission. - Vital Signs Vital signs: Temp Pulse Resp BP Pulse Ox 100.7 F H 98 20 129/89 H 96 06/04/18 23:34 06/05/18 02:00 06/04/18 23:34 06/04/18 23:34 06/04/18 23:34 - Laboratory Result Diagrams: 06/04/18 17:12 06/04/18 18:50 Laboratory results interpreted by me: 06/04/18 06/04/18 06/04/18 17:12 18:50 19:56 WBC 10.7 H Hct 35.5 L RDW 14.2 H Seg Neutrophils % 80.6 H Lymphocytes % 10.0 L Absolute Neutrophils 8.6 H Chloride 110 H Glucose 120 H AST 48 H Albumin 3.3 L Urine Protein 30 H Urine Ketones TRACE H Urine Blood SMALL H Urine Nitrite POSITIVE H Ur Leukocyte Esterase LARGE H - Diagnostic Test Radiology reviewed: Image reviewed, Reports reviewed Radiology results interpreted by me: 06/04/18 21:15 Chest x-ray: No acute infiltrate or pneumothorax Discharge - Discharge Clinical Impression: Multiple sclerosis, Pyelonephritis, Gait instability Altered mental status Qualifiers: Altered mental status type: unspecified Qualified Code(s): R41.82 - Altered mental status, unspecified Sepsis Qualifiers: Sepsis type: sepsis due to unspecified organism Qualified Code(s): A41.9 - Sepsis, unspecified organism Condition: Fair Disposition: ADMITTED INPATIENT Admitting Provider: Ignacio Unit Admitted: [facility]
[2018-06-05] MEDS: NORMAL SALINE 1000 ML 1,000 ML IV PRN ×3 (01:04→20:56)
[2018-06-05] MEDS: CEFTRIAXONE 1 GM/D5W RTU 1 GM/50 ML RTUPB IV SCH (10:37)
[2018-06-05] MEDS: ACETAMINOPHEN 325 MG TABLET PO PRN ×2 (11:18→19:58)
--- NOTE | 2018-06-05 14:28 | PDOC H&P ---
History of Present Illness Admission Date/PCP: 06/04/18 21:22 DELFINA SHARPE Patient complains of: Difficulty walking History of Present Illness: JEAN TOMLINSON is a 58 year old female patient of Dr Moon who was brought to the ED by family due to progressive worsening of her ability to walking at home. She has history multiple sclerosis and do ambulate with walker at home but in the last couple of days there has been progressive inability to ambulate. Family reported associated fever and worsening confusion beyond her baseline from Dementia. There is no nausea or vomiting but reported poor oral intake. No diarrhea. Family member at bedside (sister) denied difficulty with breathing or observed chest pain. Sister reported similar episode in February 2018 with associated urinary tract infection. Her initial evaluation in the ED was significant for abnormal urinalysis and leukocytosis with fever, low blood pressure and tachycardia. Her morbidities include multiple sclerosis, SDAT, Vitamin D deficiency, and Seizures disorder. She was advised hospitalization for further evaluation and management. Past Medical History Cardiac Medical History: Denies: Coronary Artery Disease, Myocardial Infarction, Hypertension Pulmonary Medical History: Denies: Asthma, Bronchitis, Chronic Obstructive Pulmonary Disease (COPD), Pneumonia, Tuberculosis Neurological Medical History: Reports: Seizures - 3-4 yrs ago Musculoskeltal Medical History: Denies: Arthritis Psychiatric Medical History: Denies: Depression Hematology: Denies: Anemia Past Surgical History Past Surgical History: Reports: Hysterectomy Denies: Pacemaker Social History Lives with: Family Smoking Status: Former Smoker Frequency of Alcohol Use: None Hx Recreational Drug Use: No Drugs: None Hx Prescription Drug Abuse: No Family History Family History: Reviewed & Not Pertinent Parental Family History Reviewed: Yes Children Family History Reviewed: Yes Sibling(s) Family History Reviewed.: Yes Medication/Allergy Home Medications: Ergocalciferol (Vitamin D2) [Vitamin D2] 50,000 unit PO TH@1000 03/19/18 Levetiracetam [Keppra] 1,000 mg PO DAILY 03/19/18 Teriflunomide [Aubagio] 7 mg PO DAILY 06/05/18 Allergies/Adverse Reactions: No Known Allergies Allergy (Verified 06/04/18 15:40) Review of Systems ROS unobtainable: Due to mental status - mostly obtained from sister at bedside at the time of my evaluation due to patient 's profound memory limitation by dementia. Physical Exam Vital Signs: Temp Pulse Resp BP Pulse Ox 99.7 F 123 H 16 100/60 98 06/05/18 12:57 06/05/18 11:16 06/05/18 11:16 06/05/18 11:16 06/05/18 11:16 Intake & Output 06/04/18 06/05/18 06/06/18 06:59 06:59 06:59 Intake Total 1498 925 Balance 1498 925 Weight 42.3 kg General appearance: PRESENT: no acute distress Head exam: PRESENT: atraumatic, normocephalic Eye exam: PRESENT: conjunctiva pink, EOMI, PERRLA. ABSENT: scleral icterus Ear exam: PRESENT: normal external ear exam Mouth exam: PRESENT: moist Teeth exam: PRESENT: poor dentation Respiratory exam: PRESENT: clear to auscultation nilson Cardiovascular exam: PRESENT: RRR. ABSENT: diastolic murmur, rubs, systolic murmur Vascular exam: PRESENT: normal capillary refill. ABSENT: pallor GI/Abdominal exam: PRESENT: normal bowel sounds, soft. ABSENT: distended, guarding, mass, organolmegaly, rebound, tenderness Rectal exam: PRESENT: deferred Extremities exam: ABSENT: pedal edema Musculoskeletal exam: PRESENT: deformity - related to multipole joints involvement with arthritis. Neurological exam: PRESENT: awake. ABSENT: oriented to person, oriented to place - at Dr. Aren Elias office, oriented to time, oriented to situation Psychiatric exam: PRESENT: appropriate affect, normal mood. ABSENT: homicidal ideation, suicidal ideation Skin exam: PRESENT: dry, intact, warm. ABSENT: cyanosis, rash Results Laboratory Results: 06/04/18 17:12 06/04/18 18:50 06/04/18 06/04/18 06/04/18 17:12 17:12 17:12 WBC 10.7 H RBC 4.25 Hgb 12.0 Hct 35.5 L MCV 84 MCH 28.2 MCHC 33.8 RDW 14.2 H Plt Count 286 Seg Neutrophils % 80.6 H Lymphocytes % 10.0 L Monocytes % 9.1 Eosinophils % 0.0 Basophils % 0.3 Absolute Neutrophils 8.6 H Absolute Lymphocytes 1.1 Absolute Monocytes 1.0 Absolute Eosinophils 0.0 Absolute Basophils 0.0 VBG pH VBG pCO2 VBG HCO3 VBG Base Excess Sodium Cancelled Potassium Cancelled Chloride Cancelled Carbon Dioxide Cancelled Anion Gap Cancelled BUN Cancelled Creatinine Cancelled Est GFR ( Amer) Cancelled Est GFR (Non-Af Amer) Cancelled Glucose Cancelled Lactic Acid 1.0 Calcium Cancelled Total Bilirubin Cancelled AST Cancelled ALT Cancelled Alkaline Phosphatase Cancelled Total Protein Cancelled Albumin Cancelled Urine Color Urine Appearance Urine pH Ur Specific Coleman Urine Protein Urine Glucose (UA) Urine Ketones Urine Blood Urine Nitrite Ur Leukocyte Esterase Urine WBC (Auto) Urine RBC (Auto) 06/04/18 06/04/18 06/04/18 17:12 18:50 19:56 WBC RBC Hgb Hct MCV MCH MCHC RDW Plt Count Seg Neutrophils % Lymphocytes % Monocytes % Eosinophils % Basophils % Absolute Neutrophils Absolute Lymphocytes Absolute Monocytes Absolute Eosinophils Absolute Basophils VBG pH 7.38 VBG pCO2 45.9 VBG HCO3 26.7 VBG Base Excess 1.0 Sodium 140.2 Potassium 3.9 Chloride 110 H Carbon Dioxide 22 Anion Gap 8 BUN 13 Creatinine 0.64 Est GFR ( Amer) > 60 Est GFR (Non-Af Amer) > 60 Glucose 120 H Lactic Acid Calcium 8.5 Total Bilirubin 0.4 AST 48 H ALT 49 Alkaline Phosphatase 78 Total Protein 6.6 Albumin 3.3 L Urine Color YELLOW Urine Appearance TURBID Urine pH 5.0 Ur Specific Coleman 1.006 Urine Protein 30 H Urine Glucose (UA) NEGATIVE Urine Ketones TRACE H Urine Blood SMALL H Urine Nitrite POSITIVE H Ur Leukocyte Esterase LARGE H Urine WBC (Auto) >182 Urine RBC (Auto) 44 Impressions: Chest X-Ray 06/04/18 16:48 IMPRESSION: Pulmonary hyperinflation without acute abnormality of the lungs. No focal airspace opacity. Assessment & Plan - Diagnosis (1) Toxic metabolic encephalopathy Is this a current diagnosis for this admission?: Yes Plan: Probably due to her ongoing infectious state. Maintain on IV antibiotic therapy and IV fluid support. Star ton stress vitamin therapy. (2) Urinary tract infection Qualifiers: Urinary tract infection type: acute cystitis Hematuria presence: without hematuria Qualified Code(s): N30.00 - Acute cystitis without hematuria Is this a current diagnosis for this admission?: Yes Plan: Continue IV Rocephin coverage pending urine culture findings. (3) SDAT (senile dementia of Alzheimer's type) Is this a current diagnosis for this admission?: Yes Plan: Maintain on supportive care management. (4) Multiple sclerosis Is this a current diagnosis for this admission?: Yes Plan: Continue her preadmission medication management. (5) Seizure disorder Is this a current diagnosis for this admission?: Yes Plan: Maintain on preadmission medication management. - Time Time Spent: 50 to 70 Minutes Medications reviewed and adjusted accordingly: Yes Anticipated discharge: Home with Homehealth Within: Other - Inpatient Certification Based on my medical assessment, after consideration of the patient's comorbidities, presenting symptoms, or acuity I expect that the services needed warrant INPATIENT care.: Yes I certify that my determination is in accordance with my understanding of Medicare's requirements for reasonable and necessary INPATIENT services [42 CFR 412.3e].: Yes Medical Necessity: Need Close Monitoring Due to Risk of Patient Decompensation, Need For IV Fluids, Need for IV Antibiotics, Risk of Complication if Not Cared For in Hospital 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
[2018-06-05] MEDS ORDERED: TERIFLUNOMIDE 7 MG PO SCH (14:30)
[2018-06-05] MEDS ORDERED: (PENDING PHARMACY ID) (Levetiracetam [Keppra] 1,000 MG) PO SCH (14:30)
[2018-06-05] MEDS: LEVETIRACETAM 500 MG TABLET PO SCH (17:07)
[2018-06-06] MEDS: ACETAMINOPHEN 325 MG TABLET PO PRN (04:34)
[2018-06-06] MEDS: NORMAL SALINE 1000 ML 1,000 ML IV PRN ×2 (07:17→21:46)
[2018-06-06] MEDS: LEVETIRACETAM 500 MG TABLET PO SCH (09:14)
[2018-06-06] MEDS: CEFTRIAXONE 1 GM/D5W RTU 1 GM/50 ML RTUPB IV SCH (09:14)
[2018-06-06 09:29] LABS: ABSOLUTE LYMPHOCYTES (AUTO) 1.2 10^3/uL (0.5-4.7); ABSOLUTE MONOCYTES (AUTO) 0.9 10^3/uL (0.1-1.4); ABSOLUTE NEUT (AUTO) 5.5 10^3/uL (1.7-8.2); BASOPHILS % (AUTO) 0.4 % (0-2); HEMATOCRIT 28.2 % (36.0-47.0); LYMPHOCYTES % (AUTO) 15.8 % (13-45); MEAN CORPUSCULAR HEMOGLOBIN 27.4 pg (27.0-33.4); MEAN CORPUSCULAR HGB CONC 33.3 g/dL (32.0-36.0); MEAN CORPUSCULAR VOLUME 82 fl (80-97); PLATELET COUNT 209 10^3/uL (150-450); RED BLOOD COUNT 3.42 10^6/uL (3.72-5.28); RED CELL DISTRIBUTION WIDTH 14.7 % (11.5-14.0); SEGMENTED NEUTROPHILS % (AUTO) 71.8 % (42-78); TOTAL CELLS COUNTED % (AUTO) 100 %; WHITE BLOOD COUNT 7.7 10^3/uL (4.0-10.5)
[2018-06-06 09:33] LABS: HEMOGLOBIN 9.4 g/dL (12.0-15.5)
[2018-06-06 09:50] LABS: BLOOD UREA NITROGEN 8 mg/dL (7-20); CALCIUM 8.4 mg/dL (8.4-10.2); GLUCOSE 91 mg/dL (75-110); POTASSIUM 3.6 mmol/L (3.6-5.0)
[2018-06-06 09:56] LABS: CARBON DIOXIDE 25 mmol/L (22-30); CHLORIDE 113 mmol/L (98-107); SODIUM 141.9 mmol/L (137-145)
[2018-06-06 10:02] LABS: ANION GAP 4 (5-19)
--- NOTE | 2018-06-06 13:56 | PDOC PROGRESS REPORT ---
Subjective Progress Note for:: 06/06/18 Subjective:: pt was admitted for uti/weakness doing well nocp no sob Reason For Visit: ALTERED MENTAL STATUS,MULTIPLE SCLEROSIS Physical Exam Vital Signs: Temp Pulse Resp BP Pulse Ox 99.1 F 83 12 93/63 L 100 06/06/18 07:36 06/06/18 07:36 06/06/18 07:36 06/06/18 07:36 06/06/18 07:36 Intake & Output 06/05/18 06/06/18 06/07/18 06:59 06:59 06:59 Intake Total 1498 3265 50 Balance 1498 3265 50 Weight 42.3 kg 42.6 kg General appearance: PRESENT: no acute distress, well-developed, well-nourished Head exam: PRESENT: atraumatic, normocephalic Eye exam: PRESENT: conjunctiva pink, EOMI, PERRLA. ABSENT: scleral icterus Ear exam: PRESENT: normal external ear exam Mouth exam: PRESENT: moist, tongue midline Neck exam: PRESENT: full ROM. ABSENT: carotid bruit, JVD, lymphadenopathy, thyromegaly Respiratory exam: PRESENT: clear to auscultation nilson Cardiovascular exam: PRESENT: RRR. ABSENT: diastolic murmur, rubs, systolic murmur Pulses: PRESENT: normal dorsalis pedis pul, +2 pedal pulses bilateral Vascular exam: PRESENT: normal capillary refill GI/Abdominal exam: PRESENT: normal bowel sounds, soft. ABSENT: distended, guarding, mass, organolmegaly, rebound, tenderness Rectal exam: PRESENT: deferred Extremities exam: ABSENT: pedal edema Neurological exam: PRESENT: alert, awake, oriented to person, oriented to place. ABSENT: motor sensory deficit Psychiatric exam: PRESENT: appropriate affect, normal mood. ABSENT: homicidal ideation, suicidal ideation Skin exam: PRESENT: dry, intact, warm. ABSENT: cyanosis, rash Results Laboratory Results: 06/06/18 09:02 06/06/18 09:02 06/06/18 06/06/18 09:02 09:02 WBC 7.7 RBC 3.42 L Hgb 9.4 L D Hct 28.2 L MCV 82 MCH 27.4 MCHC 33.3 RDW 14.7 H Plt Count 209 Seg Neutrophils % 71.8 Lymphocytes % 15.8 Monocytes % 12.0 Eosinophils % 0.0 Basophils % 0.4 Absolute Neutrophils 5.5 Absolute Lymphocytes 1.2 Absolute Monocytes 0.9 Absolute Eosinophils 0.0 Absolute Basophils 0.0 Sodium 141.9 Potassium 3.6 Chloride 113 H Carbon Dioxide 25 Anion Gap 4 L BUN 8 Creatinine 0.53 Est GFR ( Amer) > 60 Est GFR (Non-Af Amer) > 60 Glucose 91 Calcium 8.4 06/04/18 19:56 Catheterized Urine Urine Culture - Final Escherichia Coli Impressions: Chest X-Ray 06/04/18 16:48 IMPRESSION: Pulmonary hyperinflation without acute abnormality of the lungs. No focal airspace opacity. Assessment & Plan - Diagnosis (1) Altered mental status Qualifiers: Altered mental status type: unspecified Qualified Code(s): R41.82 - Altered mental status, unspecified Is this a current diagnosis for this admission?: Yes (2) Gait instability Is this a current diagnosis for this admission?: Yes (3) Multiple sclerosis Is this a current diagnosis for this admission?: Yes (4) SDAT (senile dementia of Alzheimer's type) Is this a current diagnosis for this admission?: Yes (5) Toxic metabolic encephalopathy Is this a current diagnosis for this admission?: Yes (6) Seizure disorder Is this a current diagnosis for this admission?: Yes (7) Urinary tract infection Qualifiers: Urinary tract infection type: acute cystitis Hematuria presence: without hematuria Qualified Code(s): N30.00 - Acute cystitis without hematuria Is this a current diagnosis for this admission?: Yes - Time Time Spent with patient: 15-24 minutes Medications reviewed and adjusted accordingly: Yes Anticipated discharge: Home Within: Other - Plan Summary Plan Summary: cont iv rocephine cont curr med
[2018-06-07 05:27] LABS: HEMATOCRIT 27.6 % (36.0-47.0); HEMOGLOBIN 9.4 g/dL (12.0-15.5); MEAN CORPUSCULAR HEMOGLOBIN 27.9 pg (27.0-33.4); MEAN CORPUSCULAR HGB CONC 33.9 g/dL (32.0-36.0); MEAN CORPUSCULAR VOLUME 82 fl (80-97); PLATELET COUNT 231 10^3/uL (150-450); RED BLOOD COUNT 3.36 10^6/uL (3.72-5.28); RED CELL DISTRIBUTION WIDTH 14.8 % (11.5-14.0); WHITE BLOOD COUNT 5.7 10^3/uL (4.0-10.5)
[2018-06-07 05:45] LABS: BLOOD UREA NITROGEN 9 mg/dL (7-20); CALCIUM 8.2 mg/dL (8.4-10.2); GLUCOSE 96 mg/dL (75-110); POTASSIUM 3.8 mmol/L (3.6-5.0)
[2018-06-07 05:51] LABS: ANION GAP 5 (5-19); CARBON DIOXIDE 24 mmol/L (22-30); CHLORIDE 113 mmol/L (98-107)
[2018-06-07 06:04] LABS: ABSOLUTE LYMPHOCYTES# (MANUAL) 1.7 10^3/uL (0.5-4.7); ABSOLUTE MONOCYTES # (MANUAL) 0.3 10^3/uL (0.1-1.4); ABSOLUTE NEUTROPHILS# (MANUAL) 3.7 10^3/uL (1.7-8.2); BASOPHILS % (MANUAL) 0 % (0-2); EOSINOPHILS % (MANUAL) 0 % (0-6); LYMPHOCYTES % (MANUAL) 29 % (13-45); MONOCYTES % (MANUAL) 6 % (3-13); SEGMENTED NEUTROPHILS % (MAN) 65 % (42-78); TOTAL CELLS COUNTED 100
[2018-06-07 06:05] LABS: ANISOCYTOSIS SLIGHT; BURR CELLS SLIGHT; HELMET CELLS 1+; OVALOCYTES 1+; POIKILOCYTOSIS 1+; POLYCHROMASIA SLIGHT; SCHISTOCYTES SLIGHT; TOXIC GRANULATION 1+; TOXIC VACUOLATION PRESENT
[2018-06-07 06:06] LABS: PLATELET COMMENT ADEQUATE; PLATELET LARGE PRESENT
[2018-06-07] MEDS: LEVETIRACETAM 500 MG TABLET PO SCH (09:31)
[2018-06-07] MEDS: CEFTRIAXONE 1 GM/D5W RTU 1 GM/50 ML RTUPB IV SCH (09:31)
--- NOTE | 2018-06-07 09:31 | PDOC PROGRESS REPORT ---
Subjective Progress Note for:: 06/07/18 Subjective:: Patient is currently doing well Patient is afebrile No other events happens Reason For Visit: ALTERED MENTAL STATUS,MULTIPLE SCLEROSIS Physical Exam Vital Signs: Temp Pulse Resp BP Pulse Ox 100.0 F 84 12 101/66 100 06/07/18 03:07 06/07/18 07:00 06/07/18 03:07 06/07/18 03:07 06/07/18 03:07 Intake & Output 06/06/18 06/07/18 06/08/18 06:59 06:59 06:59 Intake Total 3265 1250 1000 Balance 3265 1250 1000 Weight 42.6 kg 46.1 kg General appearance: PRESENT: no acute distress, well-developed, well-nourished Head exam: PRESENT: atraumatic, normocephalic Eye exam: PRESENT: conjunctiva pink, EOMI, PERRLA. ABSENT: scleral icterus Ear exam: PRESENT: normal external ear exam Mouth exam: PRESENT: moist, tongue midline Neck exam: PRESENT: full ROM. ABSENT: carotid bruit, JVD, lymphadenopathy, thyromegaly Respiratory exam: PRESENT: clear to auscultation nilson Cardiovascular exam: PRESENT: RRR. ABSENT: diastolic murmur, rubs, systolic murmur Pulses: PRESENT: normal dorsalis pedis pul, +2 pedal pulses bilateral Vascular exam: PRESENT: normal capillary refill GI/Abdominal exam: PRESENT: normal bowel sounds, soft. ABSENT: distended, guarding, mass, organolmegaly, rebound, tenderness Rectal exam: PRESENT: deferred Neurological exam: PRESENT: alert, awake, oriented to person, oriented to place, oriented to time, oriented to situation. ABSENT: motor sensory deficit Psychiatric exam: PRESENT: appropriate affect, normal mood. ABSENT: homicidal ideation, suicidal ideation Skin exam: PRESENT: dry, intact, warm. ABSENT: cyanosis, rash Results Laboratory Results: 06/07/18 05:09 06/07/18 05:09 06/06/18 06/06/18 06/07/18 09:02 09:02 05:09 WBC 7.7 5.7 RBC 3.42 L 3.36 L Hgb 9.4 L D 9.4 L Hct 28.2 L 27.6 L MCV 82 82 MCH 27.4 27.9 MCHC 33.3 33.9 RDW 14.7 H 14.8 H Plt Count 209 231 Seg Neutrophils % 71.8 Not Reportable Lymphocytes % 15.8 Not Reportable Monocytes % 12.0 Not Reportable Eosinophils % 0.0 Not Reportable Basophils % 0.4 Not Reportable Absolute Neutrophils 5.5 Not Reportable Absolute Lymphocytes 1.2 Not Reportable Absolute Monocytes 0.9 Not Reportable Absolute Eosinophils 0.0 Not Reportable Absolute Basophils 0.0 Not Reportable Sodium 141.9 Potassium 3.6 Chloride 113 H Carbon Dioxide 25 Anion Gap 4 L BUN 8 Creatinine 0.53 Est GFR ( Amer) > 60 Est GFR (Non-Af Amer) > 60 Glucose 91 Calcium 8.4 06/07/18 05:09 WBC RBC Hgb Hct MCV MCH MCHC RDW Plt Count Seg Neutrophils % Lymphocytes % Monocytes % Eosinophils % Basophils % Absolute Neutrophils Absolute Lymphocytes Absolute Monocytes Absolute Eosinophils Absolute Basophils Sodium 142.0 Potassium 3.8 Chloride 113 H Carbon Dioxide 24 Anion Gap 5 BUN 9 Creatinine 0.52 Est GFR ( Amer) > 60 Est GFR (Non-Af Amer) > 60 Glucose 96 Calcium 8.2 L 06/04/18 19:56 Catheterized Urine Urine Culture - Final Escherichia Coli Impressions: Chest X-Ray 06/04/18 16:48 IMPRESSION: Pulmonary hyperinflation without acute abnormality of the lungs. No focal airspace opacity. Assessment & Plan - Diagnosis (1) Altered mental status Qualifiers: Altered mental status type: unspecified Qualified Code(s): R41.82 - Altered mental status, unspecified Is this a current diagnosis for this admission?: Yes (2) Gait instability Is this a current diagnosis for this admission?: Yes (3) Multiple sclerosis Is this a current diagnosis for this admission?: Yes (4) SDAT (senile dementia of Alzheimer's type) Is this a current diagnosis for this admission?: Yes (5) Toxic metabolic encephalopathy Is this a current diagnosis for this admission?: Yes (6) Seizure disorder Is this a current diagnosis for this admission?: Yes (7) Urinary tract infection Qualifiers: Urinary tract infection type: acute cystitis Hematuria presence: without hematuria Qualified Code(s): N30.00 - Acute cystitis without hematuria Is this a current diagnosis for this admission?: Yes - Time Time Spent with patient: 15-24 minutes Medications reviewed and adjusted accordingly: Yes Anticipated discharge: Home with Homehealth Within: within 48 hours - Plan Summary Plan Summary: Continues on IV Rocephin stop the IV fluid continues to physical therapy
[2018-06-07] MEDS: NORMAL SALINE 1000 ML 1,000 ML IV PRN (15:40)
[2018-06-08] MEDS: NORMAL SALINE 1000 ML 1,000 ML IV PRN (02:08)
[2018-06-08 07:51] LABS: ABSOLUTE LYMPHOCYTES (AUTO) 1.3 10^3/uL (0.5-4.7); ABSOLUTE MONOCYTES (AUTO) 0.6 10^3/uL (0.1-1.4); ABSOLUTE NEUT (AUTO) 3.1 10^3/uL (1.7-8.2); BASOPHILS % (AUTO) 0.3 % (0-2); EOSINOPHILS % (AUTO) 0.6 % (0-6); HEMATOCRIT 27.3 % (36.0-47.0); HEMOGLOBIN 9.2 g/dL (12.0-15.5); LYMPHOCYTES % (AUTO) 26.5 % (13-45); MEAN CORPUSCULAR HEMOGLOBIN 27.9 pg (27.0-33.4); MEAN CORPUSCULAR HGB CONC 33.8 g/dL (32.0-36.0); MEAN CORPUSCULAR VOLUME 83 fl (80-97); MONOCYTES % (AUTO) 11.5 % (3-13); PLATELET COUNT 259 10^3/uL (150-450); RED CELL DISTRIBUTION WIDTH 14.4 % (11.5-14.0); SEGMENTED NEUTROPHILS % (AUTO) 61.1 % (42-78); TOTAL CELLS COUNTED % (AUTO) 100 %
[2018-06-08] MEDS ORDERED: NORMAL SALINE 1000 ML 1,000 ML IV PRN (07:59)
[2018-06-08 08:20] LABS: BLOOD UREA NITROGEN 11 mg/dL (7-20); CALCIUM 8.3 mg/dL (8.4-10.2); GLUCOSE 91 mg/dL (75-110)
[2018-06-08 08:21] LABS: CARBON DIOXIDE 28 mmol/L (22-30); CHLORIDE 113 mmol/L (98-107); POTASSIUM 3.6 mmol/L (3.6-5.0)
[2018-06-08 08:35] LABS: SODIUM 143.8 mmol/L (137-145)
[2018-06-08 08:36] LABS: ANION GAP 3 (5-19)
--- NOTE | 2018-06-08 09:07 | PDOC PROGRESS REPORT ---
Subjective Progress Note for:: 06/08/18 Subjective:: Patient is currently doing much better Patient is temperature is 99 max Patient to blood pressures was running low but I think manual blood pressure was pretty good Patient is alert awake denied any other symptoms Discussed with the sister at bedside regarding the patient's current conditions patient started the new medicines for the multiple sclerosis per the neurology couple of weeks back Reason For Visit: ALTERED MENTAL STATUS,MULTIPLE SCLEROSIS Physical Exam Vital Signs: Temp Pulse Resp BP Pulse Ox 98.2 F 70 16 111/77 100 06/08/18 08:21 06/08/18 08:21 06/08/18 08:21 06/08/18 08:21 06/08/18 08:21 Intake & Output 06/07/18 06/08/18 06/09/18 06:59 06:59 06:59 Intake Total 1250 2525 Balance 1250 2525 Weight 46.1 kg 45.7 kg General appearance: PRESENT: no acute distress, well-developed, well-nourished Head exam: PRESENT: atraumatic, normocephalic Eye exam: PRESENT: conjunctiva pink, EOMI, PERRLA. ABSENT: scleral icterus Ear exam: PRESENT: normal external ear exam Mouth exam: PRESENT: moist, tongue midline Neck exam: PRESENT: full ROM. ABSENT: carotid bruit, JVD, lymphadenopathy, thyromegaly Respiratory exam: PRESENT: clear to auscultation nilson Cardiovascular exam: PRESENT: RRR. ABSENT: diastolic murmur, rubs, systolic murmur Pulses: PRESENT: normal dorsalis pedis pul, +2 pedal pulses bilateral Vascular exam: PRESENT: normal capillary refill GI/Abdominal exam: PRESENT: normal bowel sounds, soft. ABSENT: distended, guarding, mass, organolmegaly, rebound, tenderness Rectal exam: PRESENT: deferred Neurological exam: PRESENT: alert, awake, oriented to person, oriented to place. ABSENT: motor sensory deficit Psychiatric exam: PRESENT: appropriate affect, normal mood. ABSENT: homicidal ideation, suicidal ideation Skin exam: PRESENT: dry, intact, warm. ABSENT: cyanosis, rash Results Laboratory Results: 06/08/18 07:25 06/08/18 07:25 06/08/18 06/08/18 07:25 07:25 WBC 5.0 RBC 3.30 L Hgb 9.2 L Hct 27.3 L MCV 83 MCH 27.9 MCHC 33.8 RDW 14.4 H Plt Count 259 Seg Neutrophils % 61.1 Lymphocytes % 26.5 Monocytes % 11.5 Eosinophils % 0.6 Basophils % 0.3 Absolute Neutrophils 3.1 Absolute Lymphocytes 1.3 Absolute Monocytes 0.6 Absolute Eosinophils 0.0 Absolute Basophils 0.0 Sodium 143.8 Potassium 3.6 Chloride 113 H Carbon Dioxide 28 Anion Gap 3 L BUN 11 Creatinine 0.48 L Est GFR ( Amer) > 60 Est GFR (Non-Af Amer) > 60 Glucose 91 Calcium 8.3 L Impressions: Chest X-Ray 06/04/18 16:48 IMPRESSION: Pulmonary hyperinflation without acute abnormality of the lungs. No focal airspace opacity. Assessment & Plan - Diagnosis (1) Altered mental status Qualifiers: Altered mental status type: unspecified Qualified Code(s): R41.82 - Altered mental status, unspecified Is this a current diagnosis for this admission?: Yes Plan: To the urinary tract infections (2) Gait instability Is this a current diagnosis for this admission?: Yes Plan: With ongoing problem for multiple sclerosis (3) Multiple sclerosis Is this a current diagnosis for this admission?: Yes Plan: Follow outpatients neurology (4) SDAT (senile dementia of Alzheimer's type) Is this a current diagnosis for this admission?: Yes (5) Toxic metabolic encephalopathy Is this a current diagnosis for this admission?: Yes Plan: Currently all improving (6) Seizure disorder Is this a current diagnosis for this admission?: Yes Plan: Currently all stable (7) Urinary tract infection Qualifiers: Urinary tract infection type: acute cystitis Hematuria presence: without hematuria Qualified Code(s): N30.00 - Acute cystitis without hematuria Is this a current diagnosis for this admission?: Yes Plan: Continues to IV antibiotic - Time Time Spent with patient: 15-24 minutes Medications reviewed and adjusted accordingly: Yes Anticipated discharge: Home - Plan Summary Plan Summary: Discussed with the sister regarding the patient's current conditions
[2018-06-08] MEDS: LEVETIRACETAM 500 MG TABLET PO SCH (10:28)
[2018-06-08] MEDS: CEFTRIAXONE 1 GM/D5W RTU 1 GM/50 ML RTUPB IV SCH (10:30)
[2018-06-09 06:10] LABS: ANION GAP 6 (5-19); BLOOD UREA NITROGEN 8 mg/dL (7-20); CALCIUM 8.6 mg/dL (8.4-10.2); CARBON DIOXIDE 27 mmol/L (22-30); CHLORIDE 110 mmol/L (98-107); GLUCOSE 84 mg/dL (75-110); POTASSIUM 3.9 mmol/L (3.6-5.0); SODIUM 143.2 mmol/L (137-145)
[2018-06-09] MEDS ORDERED: ERGOCALCIFEROL (VITAMIN D2) 50000 UNIT (1.25 MG) CAPSULE PO SCH (10:00)
[2018-06-09] MEDS: CEFTRIAXONE 1 GM/D5W RTU 1 GM/50 ML RTUPB IV SCH (10:20)
[2018-06-09] MEDS: LEVETIRACETAM 500 MG TABLET PO SCH (10:21)
--- NOTE | 2018-06-09 12:50 | PDOC PROGRESS REPORT ---
Subjective Progress Note for:: 06/09/18 Subjective:: Patient is currently doing much better Patient is temperature is 99 max Patient to blood pressures was running low but I think manual blood pressure was pretty good Patient is alert awake denied any other symptoms Discussed with the sister at bedside regarding the patient's current conditions patient started the new medicines for the multiple sclerosis per the neurology couple of weeks back Reason For Visit: ALTERED MENTAL STATUS,MULTIPLE SCLEROSIS Physical Exam Vital Signs: Temp Pulse Resp BP Pulse Ox 98.7 F 63 16 104/78 100 06/09/18 07:31 06/09/18 07:31 06/09/18 07:31 06/09/18 07:31 06/09/18 07:31 Intake & Output 06/08/18 06/09/18 06/10/18 06:59 06:59 06:59 Intake Total 2525 410 Balance 2525 410 Weight 43.4 kg General appearance: PRESENT: no acute distress, well-developed, well-nourished Head exam: PRESENT: atraumatic, normocephalic Eye exam: PRESENT: conjunctiva pink, EOMI, PERRLA. ABSENT: scleral icterus Ear exam: PRESENT: normal external ear exam Mouth exam: PRESENT: moist, tongue midline Neck exam: PRESENT: full ROM. ABSENT: carotid bruit, JVD, lymphadenopathy, thyromegaly Respiratory exam: PRESENT: clear to auscultation nilson Cardiovascular exam: PRESENT: RRR. ABSENT: diastolic murmur, rubs, systolic murmur Pulses: PRESENT: normal dorsalis pedis pul, +2 pedal pulses bilateral Vascular exam: PRESENT: normal capillary refill GI/Abdominal exam: PRESENT: normal bowel sounds, soft. ABSENT: distended, guarding, mass, organolmegaly, rebound, tenderness Rectal exam: PRESENT: deferred Neurological exam: PRESENT: alert, awake, oriented to person, oriented to place, oriented to time, oriented to situation, CN II-XII grossly intact. ABSENT: motor sensory deficit Psychiatric exam: PRESENT: appropriate affect, normal mood. ABSENT: homicidal ideation, suicidal ideation Skin exam: PRESENT: dry, intact, warm. ABSENT: cyanosis, rash Results Laboratory Results: 06/08/18 07:25 06/09/18 05:11 06/09/18 05:11 Sodium 143.2 Potassium 3.9 Chloride 110 H Carbon Dioxide 27 Anion Gap 6 BUN 8 Creatinine 0.47 L Est GFR ( Amer) > 60 Est GFR (Non-Af Amer) > 60 Glucose 84 Calcium 8.6 Impressions: Chest X-Ray 06/04/18 16:48 IMPRESSION: Pulmonary hyperinflation without acute abnormality of the lungs. No focal airspace opacity. Assessment & Plan - Diagnosis (1) Altered mental status Qualifiers: Altered mental status type: unspecified Qualified Code(s): R41.82 - Altered mental status, unspecified Is this a current diagnosis for this admission?: Yes Plan: To the urinary tract infections (2) Gait instability Is this a current diagnosis for this admission?: Yes Plan: With ongoing problem for multiple sclerosis (3) Multiple sclerosis Is this a current diagnosis for this admission?: Yes Plan: Follow outpatients neurology (4) SDAT (senile dementia of Alzheimer's type) Is this a current diagnosis for this admission?: Yes (5) Toxic metabolic encephalopathy Is this a current diagnosis for this admission?: Yes Plan: Currently all improving (6) Seizure disorder Is this a current diagnosis for this admission?: Yes Plan: Currently all stable (7) Urinary tract infection Qualifiers: Urinary tract infection type: acute cystitis Hematuria presence: without hematuria Qualified Code(s): N30.00 - Acute cystitis without hematuria Is this a current diagnosis for this admission?: Yes Plan: Continues to IV antibiotic - Time Time Spent with patient: 15-24 minutes Medications reviewed and adjusted accordingly: Yes Anticipated discharge: Home Within: within 24 hours - Plan Summary Plan Summary: Continue current medication
--- NOTE | 2018-06-10 10:12 | PDOC DISCHARGE SUMMARY ---
General - Admit/Disc Date/PCP Admission Date/Primary Care Provider: 06/04/18 21:22 DELFINA SHARPE Discharge Date: 06/10/18 - Discharge Diagnosis (1) Altered mental status Is this a current diagnosis for this admission?: Yes Summary: From the urinary tract infections currently all resolving (2) Gait instability Is this a current diagnosis for this admission?: Yes Summary: Due to the multiple sclerosis Fall precaution physical therapy (3) Multiple sclerosis Is this a current diagnosis for this admission?: Yes Summary: Patient is currently seeing neurology as outpatient recently started any new medications discussed with the sister to further evaluate about the some new medications with some urinary tract infections patient still have a 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 (4) SDAT (senile dementia of Alzheimer's type) Is this a current diagnosis for this admission?: Yes (5) Toxic metabolic encephalopathy Is this a current diagnosis for this admission?: Yes Summary: Currently all resolved (6) Seizure disorder Is this a current diagnosis for this admission?: Yes Summary: Continues to current medication (7) Urinary tract infection Is this a current diagnosis for this admission?: Yes Summary: Put the patient on Cipro twice a day (8) Anemia Is this a current diagnosis for this admission?: Yes Summary: See outpatient [facility] - Additional Information Discharge Diet: Regular Discharge Activity: Activity As Tolerated Prescriptions: Ciprofloxacin HCl [Cipro 500 mg Tablet] 500 mg PO BID #14 tablet Home Medications: Ergocalciferol (Vitamin D2) [Vitamin D2] 50,000 unit PO TH@1000 03/19/18 Levetiracetam [Keppra] 1,000 mg PO DAILY 03/19/18 Teriflunomide [Aubagio] 7 mg PO DAILY 06/05/18 Ciprofloxacin HCl [Cipro 500 mg Tablet] 500 mg PO BID #14 tablet 06/10/18 History of Present Illness History of Present Illness: JEAN TOMLINSON is a 58 year old female This is a 58-year-old female with a history of the multiple sclerosis recently started on new medications with a history of a recurrent urinary tract infection skin with the altered mental status and diagnosed with a UTI and admitting in the hospital for IV antibiotic and further evaluations Hospital Course Hospital Course: This is a 58-year-old female presenting the emergency department with a weakness altered mental status Patient was diagnosed with the urinary tract infections treated with the IV antibiotic Patients remain afebrile blood count is all stable Patient's get the home health and physical therapy Patient with ongoing multiple sclerosis currently see a neurologist Discussed with the sister regarding the patient's current conditions arrange for home health physical therapy and discharged home with the stable conditions Physical Exam Vital Signs: Temp Pulse Resp BP Pulse Ox 98.6 F 65 16 106/63 100 06/10/18 07:46 06/10/18 07:46 06/10/18 07:46 06/10/18 07:46 06/10/18 07:46 Intake & Output 06/09/18 06/10/18 06/11/18 06:59 06:59 06:59 Intake Total 410 749 Balance 410 749 Weight 43.4 kg 45.2 kg General appearance: PRESENT: no acute distress, well-developed, well-nourished Head exam: PRESENT: atraumatic, normocephalic Eye exam: PRESENT: conjunctiva pink, EOMI, PERRLA. ABSENT: scleral icterus Ear exam: PRESENT: normal external ear exam Mouth exam: PRESENT: moist, tongue midline Neck exam: PRESENT: full ROM. ABSENT: carotid bruit, JVD, lymphadenopathy, thyromegaly Respiratory exam: PRESENT: clear to auscultation nilson Cardiovascular exam: PRESENT: RRR. ABSENT: diastolic murmur, rubs, systolic murmur Pulses: PRESENT: normal dorsalis pedis pul, +2 pedal pulses bilateral Vascular exam: PRESENT: normal capillary refill GI/Abdominal exam: PRESENT: normal bowel sounds, soft. ABSENT: distended, guarding, mass, organolmegaly, rebound, tenderness Rectal exam: PRESENT: deferred Neurological exam: PRESENT: alert, awake, oriented to person, oriented to place, oriented to time, oriented to situation, CN II-XII grossly intact. ABSENT: motor sensory deficit Psychiatric exam: PRESENT: appropriate affect, normal mood. ABSENT: homicidal ideation, suicidal ideation Skin exam: PRESENT: dry, intact, warm. ABSENT: cyanosis, rash Results Laboratory Results: 06/08/18 07:25 06/09/18 05:11 06/04/18 18:30 Blood Blood Culture - Final NO GROWTH IN 5 DAYS 06/04/18 17:12 Blood Blood Culture - Final NO GROWTH IN 5 DAYS Impressions: Chest X-Ray 06/04/18 16:48 IMPRESSION: Pulmonary hyperinflation without acute abnormality of the lungs. No focal airspace opacity. Qualifiers - * PATIENT BEING DISCHARGED WITH ANY OF THE FOLLOWING DIAGNOSIS: No VTE patient discharged on overlapping Therapy?: Yes Plan Time Spent: Greater than 30 Minutes - Week in the office we will repeat the CBC and a Chem-7
[2018-06-10] MEDS: LEVETIRACETAM 500 MG TABLET PO SCH (10:20)
[2018-06-10] MEDS: CEFTRIAXONE 1 GM/D5W RTU 1 GM/50 ML RTUPB IV SCH (10:20)
[2018-06-10 12:32] VITALS: BP 111/77
== END 2018-06-10 12:32 | disposition home health service (06) | DRG 689 ==
LOC: ER 15:40 → EH 21:22 → 3S 23:30
PROVIDERS: ADMIT Internal Medicine Geriatric Medicine; ATTEND Family Medicine
DX: N30.00 Acute cystitis without hematuria (principal); G92 Toxic encephalopathy; R26.89 Other abnormalities of gait and mobility; G35 Multiple sclerosis; G30.1 Alzheimer's disease with late onset; F02.80 Dementia in other diseases classified elsewhere, unspecified severity, without behavioral disturbance, psychotic disturbance, mood disturbance, and anxiety; G40.909 Epilepsy, unspecified, not intractable, without status epilepticus; D64.9 Anemia, unspecified; E55.9 Vitamin D deficiency, unspecified; Z87.440 Personal history of urinary (tract) infections; Z87.891 Personal history of nicotine dependence
CPT/HCPCS: 36415; 71046; 80048; 80053; 81001; 82803; 82962; 83605; 85025; 85610; 87040; 87086; 87088; 87186; 87493; 93005; 93010; 96361; 96365; 99285; J0696; J3490; J7030

== ENCOUNTER → 2018-10-14 | Outpatient (CLI) | payer MEDICAID ==
--- NOTE | 2018-10-14 13:07 | WOMENS IMAGING REPORT ---
EXAM DESCRIPTION: 3D SCREENING MAMMO BILAT COMPLETED DATE/TIME: 10/14/2018 12:02 pm REASON FOR STUDY: Z12.31 ROUTINE 3D BILATERAL SCREENING Z12.31 ENCNTR SCREEN MAMMOGRAM FOR MALIGNAN T NEOPLASM OF LILY COMPARISON: Multiple since 2008 EXAM PARAMETERS: Standard craniocaudal and mediolateral oblique views of each breast recorded using digital acquisition and breast tomosynthesis. Read with the assistance of CAD. .[facility] - R2 [employer] S[employer]itor Version 9.2 LIMITATIONS: None. FINDINGS: Findings present which are benign by mammographic criteria. No suspicious masses, calcific ations or architectural distortion. Pertinent benign findings: Bilateral stable calcifications. Benign mammographic findings may include one or more of the following: Smooth masses, popcorn/rim/coa rse calcifications, asymmetries, post-procedure changes, and lesions with long-standing stability. IMPRESSION: Assessment: BENIGN MAMMOGRAPHIC FINDINGS. BIRADS 2 BREAST DENSITY: d. The breasts are extremely dense, which lowers the sensitivity of mammography. BIRAD: 2 BENIGN FINDING(S) RECOMMENDATION: ROUTINE SCREENING COMMENT: The patient has been notified of the results by letter per SA requirements. Additional no tification policies are in place for contacting patient with suspicious or incomplete findings. Quality ID #225: The [employer] recommends an annual screening mammogram for women aged 40 years or over. This facility utilizes a reminder system to ensure that all patients receive reminder letters, and/or direct phone calls for appointments. This includes reminders for routine scr eening mammograms, diagnostic mammograms, or other Breast Imaging Interventions when appropriate. Th is patient will be placed in the appropriate reminder system. TECHNICAL DOCUMENTATION: FINDING NUMBER: (1) ASSESSMENT: (1) JOB ID: [id number] [employer]- All Rights Reserved Reading location - IP/workstation name: [email or web address]
== END ==
LOC: WI 11:40
PROVIDERS: ATTEND Family Medicine
DX: Z12.31 Encounter for screening mammogram for malignant neoplasm of breast (principal)
CPT/HCPCS: 77063; 77067

== ENCOUNTER → 2020-04-30 | Outpatient (CLI) | payer MEDICAID ==
--- NOTE | 2020-04-30 12:03 | WOMENS IMAGING REPORT ---
EXAM DESCRIPTION: BILAT SCREENING MAMMO W/CAD IMAGES COMPLETED DATE/TIME: 04/30/2020 11:29 am REASON FOR STUDY: Z12.31 ENCOUNTER FOR SCREENING MAMMOGRAM FOR MALIGNANT NEOPLASM OF BREAST Z12.31 ENCNTR SCREEN MAMMOGRAM FOR MALIGNANT NEOPLASM OF LILY COMPARISON: Priors back to 2011 EXAM PARAMETERS: Standard craniocaudal and mediolateral oblique views of each breast recorded using digital acquisition. Read with the assistance of CAD. .[facility] - [employer] Version 9.2 LIMITATIONS: None. FINDINGS: Findings present which are benign by mammographic criteria. No suspicious masses, calcifi cations or architectural distortion. Pertinent benign findings: Fibrocystic change. Benign mammographic findings may include one or more of the following: Smooth masses, popcorn/rim/co arse calcifications, asymmetries, post-procedure changes, and lesions with long-standing stability. IMPRESSION: BENIGN MAMMOGRAPHIC FINDINGS. BIRADS 2 BREAST DENSITY: c. The breasts are heterogeneously dense, which may obscure small masses. BIRAD: ASSESSMENT: 2 BENIGN FINDING(S) RECOMMENDATION: ROUTINE SCREENING COMMENT: The patient has been notified of the results by letter per SA requirements. Additional no tification policies are in place for contacting patient with suspicious or incomplete findings. Quality ID #225: [employer] [place] [employer] recommends an annual screening mammogram for women aged 40 years or over. This facility utilizes a reminder system to ensure that all patients receive reminder letters, and/or direct phone calls for appointments. This includes reminders for routine scr eening mammograms, diagnostic mammograms, or other Breast Imaging Interventions when appropriate. Th is patient will be placed in the appropriate reminder system. TECHNICAL DOCUMENTATION: FINDING NUMBER: (1) ASSESSMENT: (1) JOB ID: [id number] 2010 [employer]- All Rights Reserved Reading location - IP/workstation name: PATIENT [email or web address] [email or web address]
== END ==
LOC: WI 10:54
PROVIDERS: ATTEND Physician Assistant
DX: Z12.31 Encounter for screening mammogram for malignant neoplasm of breast (principal)
CPT/HCPCS: 77067